=== PATIENT | male | born 1965 | race American Indian/Alaskan Native ===

== ENCOUNTER 2019-07-01 01:59 | Inpatient (IN) | payer OTHER ==
[2019-07-01 03:02] LABS: Basophils % (Auto) 0.2 % (0.0-1.8); Eosinophils # (Auto) 0.2 K/mm3 (0.0-0.4); Hemoglobin 14.3 gm/dl (11.8-15.2); Lymphocytes # (Auto) 3.3 K/mm3 (1.2-5.4); Lymphocytes % (Auto) 37.1 % (13.4-35.0); Mean Corpuscular HGB Conc 35 % (32-34); Mean Corpuscular Volume 92 fl (84-94); Monocytes # (Auto) 0.9 K/mm3 (0.0-0.8); Monocytes % (Auto) 9.5 % (0.0-7.3); Platelet Count 221 K/mm3 (140-440); Red Blood Count 4.44 M/mm3 (3.65-5.03); Red Cell Distribution Width 13.8 % (13.2-15.2)
--- NOTE | 2019-07-01 03:10 | Cat Scan Report ---
CT head without contrast INDICATION : AMS. TECHNIQUE: Axial imaging performed from the skull apex through the skull base without the use of con trast. All CT scans at this location are performed using CT dose reduction for ALARA by means of aut omated exposure control. COMPARISON: None FINDINGS: Parenchyma: No acute intracranial hemorrhage or parenchymal abnormality. Ventricles: Ventricles are normal in size and appear symmetric. Soft tissues: Soft tissues including the orbits appear normal. Bones: No acute osseous abnormality. Sinuses: Small mucous retention cyst in the right frontal sinus. Remaining sinuses and mastoid air c ells are clear. IMPRESSION: No acute abnormality. Signer Name: Hollis Finnegan MD Signed: 07/01/2019 3:06 AM Workstation Name: [id number]
[2019-07-01 03:13] LABS: INR 0.88 (0.87-1.13)
[2019-07-01 03:14] LABS: Partial Thromboplastin Time 26.9 Sec. (24.2-36.6)
--- NOTE | 2019-07-01 03:34 | Emergency Department Report ---
ED Altered Mental Status HPI - General Chief Complaint: Altered Mental Status Stated Complaint: ALTERED MENTAL STATUS Time Seen by Provider: 07/01/19 03:05 Source: EMS Mode of arrival: Stretcher Limitations: Altered Mental Status - History of Present Illness Initial Comments: 55-year-old male with a past medical history diabetes, hypertension, and TIA p resents to the hospital with alteration in mental status. Patient states he last remembers sitting on a couch drinking of beer and does not recall how he got to the hospital. called EMS because patient was not acting like himself. RN informs me that upon arrival patient was altered, had episodes of staring, and he could mot have a conversation. At time of my evaluation he is alert and oriented 3 with complaints of headache. Patient also complains of ongoing left lower leg pain 3 weeks since discharge from [facility] after admission for cardiac workup due to chest pain. Patient reports that he recently returned from [place] and had a syncopal episode while there. Patient states he has had several syncopal episodes recently. He denies chest pain, shortness of breath, abdominal pain, nausea, vomiting, or diarrhea. He denies having any residual deficit secondary to previous CVA. 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 - Related Data Allergies Allergy/AdvReac Type Severity Reaction Status Date / Time No Known Allergies Allergy Unverified 07/01/19 02:16 ED Review of Systems ROS: Stated complaint: ALTERED MENTAL STATUS Other details as noted in HPI Comment: All other systems reviewed and negative ED Past Medical Hx - Past Medical History Previous Medical History?: Yes Hx Hypertension: Yes Hx Diabetes: Yes (NIDDM) Additional medical history: TIA /unable to assess - Surgical History Past Surgical History?: Yes Additional Surgical History: unable to assess - Social History Smoking Status: Light Tobacco Smoker Substance Use Type: Alcohol ED Physical Exam - General Limitations: Altered Mental Status - Other Other exam information: General: no acute distress Head: Atraumatic, normocephalic Eyes: Normal appearance, pupils equal and reactive to light, extraocular movements intact ENT: normal oropharynx Neck: Normal appearance, no stridor, no meningismus, left-sided muscular neck tenderness without midline tenderness Cardiovascular: Regular rate and rhythm Chest: Clear to auscultation, no wheezes, rales, or crackles Abdomen: nondistended, soft, nontender, no rebound or guarding Extremity: Normal appearance, no deformity, full range of motion Neuro: Alert and oriented 3, clear speech, no gross motor or sensory deficit, [id number] function intact Skin: No warmth, erythema ED Course Vital Signs 07/01/19 07/01/19 07/01/19 02:07 02:13 02:15 Temperature 98.3 F Pulse Rate 81 79 78 Respiratory 29 H 22 21 Rate Blood Pressure 160/82 150/80 O2 Sat by Pulse 99 99 97 Oximetry 07/01/19 07/01/19 02:30 03:48 Temperature Pulse Rate 76 Respiratory 23 18 Rate Blood Pressure 137/69 O2 Sat by Pulse 95 Oximetry - Lab Data Result diagrams: 07/01/19 02:36 07/01/19 02:36 Lab Results 07/01/19 07/01/19 07/01/19 Range/Units 02:36 02:36 02:36 WBC 9.0 (4.5-11.0) K/mm3 RBC 4.44 (3.65-5.03) M/mm3 Hgb 14.3 (11.8-15.2) gm/dl Hct 41.0 (35.5-45.6) % MCV 92 (84-94) fl MCH 32 (28-32) pg MCHC 35 H (32-34) % RDW 13.8 (13.2-15.2) % Plt Count 221 (140-440) K/mm3 Lymph % (Auto) 37.1 H (13.4-35.0) % Barnes % (Auto) 9.5 H (0.0-7.3) % Eos % (Auto) 2.0 (0.0-4.3) % Baso % (Auto) 0.2 (0.0-1.8) % Lymph # 3.3 (1.2-5.4) K/mm3 Barnes # 0.9 H (0.0-0.8) K/mm3 Eos # 0.2 (0.0-0.4) K/mm3 Baso # 0.0 (0.0-0.1) K/mm3 Seg Neutrophils % 51.2 (40.0-70.0) % Seg Neutrophils # 4.6 (1.8-7.7) K/mm3 PT 11.7 L (12.2-14.9) Sec. INR 0.88 (0.87-1.13) APTT 26.9 (24.2-36.6) Sec. Sodium 134 L (137-145) mmol/L Potassium 3.2 L (3.6-5.0) mmol/L Chloride 93.4 L (98-107) mmol/L Carbon Dioxide 23 (22-30) mmol/L Anion Gap 21 mmol/L BUN 8 L (9-20) mg/dL Creatinine 0.8 (0.8-1.5) mg/dL Estimated GFR > 60 ml/min BUN/Creatinine Ratio 10 % Glucose 285 H (75-100) mg/dL Lactic Acid (0.7-2.0) mmol/L Calcium 9.5 (8.4-10.2) mg/dL Magnesium (1.7-2.3) mg/dL Total Bilirubin 0.20 (0.1-1.2) mg/dL AST 15 (5-40) units/L ALT 18 (7-56) units/L Alkaline Phosphatase 64 (35-129) units/L Troponin T < 0.010 (0.00-0.029) ng/mL Total Protein 7.8 (6.3-8.2) g/dL Albumin 4.1 (3.9-5) g/dL Albumin/Globulin Ratio 1.1 % Urine Color (Yellow) Urine Turbidity (Clear) Urine pH (5.0-7.0) Ur Specific [place] (1.003-1.030) Urine Protein (Negative) mg/dL Urine Glucose (UA) (Negative) mg/dL Urine Ketones (Negative) mg/dL Urine Blood (Negative) Urine Nitrite (Negative) Urine Bilirubin (Negative) Urine Urobilinogen (<2.0) mg/dL Ur Leukocyte Esterase (Negative) Urine WBC (Auto) (0.0-6.0) /HPF Urine RBC (Auto) (0.0-6.0) /HPF Urine Mucus /HPF Salicylates (2.8-20.0) mg/dL Urine Opiates Screen Urine Methadone Screen Acetaminophen (10.0-30.0) ug/mL Ur Barbiturates Screen Ur Phencyclidine Scrn Ur Amphetamines Screen U Benzodiazepines Scrn Urine Cocaine Screen U Marijuana (THC) Screen Drugs of Abuse Note Plasma/Serum Alcohol (0-0.07) % 07/01/19 07/01/19 07/01/19 Range/Units 02:36 02:36 02:36 WBC (4.5-11.0) K/mm3 RBC (3.65-5.03) M/mm3 Hgb (11.8-15.2) gm/dl Hct (35.5-45.6) % MCV (84-94) fl MCH (28-32) pg MCHC (32-34) % RDW (13.2-15.2) % Plt Count (140-440) K/mm3 Lymph % (Auto) (13.4-35.0) % Barnes % (Auto) (0.0-7.3) % Eos % (Auto) (0.0-4.3) % Baso % (Auto) (0.0-1.8) % Lymph # (1.2-5.4) K/mm3 Barnes # (0.0-0.8) K/mm3 Eos # (0.0-0.4) K/mm3 Baso # (0.0-0.1) K/mm3 Seg Neutrophils % (40.0-70.0) % Seg Neutrophils # (1.8-7.7) K/mm3 PT (12.2-14.9) Sec. INR (0.87-1.13) APTT (24.2-36.6) Sec. Sodium (137-145) mmol/L Potassium (3.6-5.0) mmol/L Chloride (98-107) mmol/L Carbon Dioxide (22-30) mmol/L Anion Gap mmol/L BUN (9-20) mg/dL Creatinine (0.8-1.5) mg/dL Estimated GFR ml/min BUN/Creatinine Ratio % Glucose (75-100) mg/dL Lactic Acid 4.40 H* (0.7-2.0) mmol/L Calcium (8.4-10.2) mg/dL Magnesium (1.7-2.3) mg/dL Total Bilirubin (0.1-1.2) mg/dL AST (5-40) units/L ALT (7-56) units/L Alkaline Phosphatase (35-129) units/L Troponin T (0.00-0.029) ng/mL Total Protein (6.3-8.2) g/dL Albumin (3.9-5) g/dL Albumin/Globulin Ratio % Urine Color (Yellow) Urine Turbidity (Clear) Urine pH (5.0-7.0) Ur Specific [place] (1.003-1.030) Urine Protein (Negative) mg/dL Urine Glucose (UA) (Negative) mg/dL Urine Ketones (Negative) mg/dL Urine Blood (Negative) Urine Nitrite (Negative) Urine Bilirubin (Negative) Urine Urobilinogen (<2.0) mg/dL Ur Leukocyte Esterase (Negative) Urine WBC (Auto) (0.0-6.0) /HPF Urine RBC (Auto) (0.0-6.0) /HPF Urine Mucus /HPF Salicylates < 0.3 L (2.8-20.0) mg/dL Urine Opiates Screen Urine Methadone Screen Acetaminophen < 5.0 L (10.0-30.0) ug/mL Ur Barbiturates Screen Ur Phencyclidine Scrn Ur Amphetamines Screen U Benzodiazepines Scrn Urine Cocaine Screen U Marijuana (THC) Screen Drugs of Abuse Note Plasma/Serum Alcohol (0-0.07) % 07/01/19 07/01/19 07/01/19 Range/Units 02:36 03:40 03:40 WBC (4.5-11.0) K/mm3 RBC (3.65-5.03) M/mm3 Hgb (11.8-15.2) gm/dl Hct (35.5-45.6) % MCV (84-94) fl MCH (28-32) pg MCHC (32-34) % RDW (13.2-15.2) % Plt Count (140-440) K/mm3 Lymph % (Auto) (13.4-35.0) % Barnes % (Auto) (0.0-7.3) % Eos % (Auto) (0.0-4.3) % Baso % (Auto) (0.0-1.8) % Lymph # (1.2-5.4) K/mm3 Barnes # (0.0-0.8) K/mm3 Eos # (0.0-0.4) K/mm3 Baso # (0.0-0.1) K/mm3 Seg Neutrophils % (40.0-70.0) % Seg Neutrophils # (1.8-7.7) K/mm3 PT (12.2-14.9) Sec. INR (0.87-1.13) APTT (24.2-36.6) Sec. Sodium (137-145) mmol/L Potassium (3.6-5.0) mmol/L Chloride (98-107) mmol/L Carbon Dioxide (22-30) mmol/L Anion Gap mmol/L BUN (9-20) mg/dL Creatinine (0.8-1.5) mg/dL Estimated GFR ml/min BUN/Creatinine Ratio % Glucose (75-100) mg/dL Lactic Acid (0.7-2.0) mmol/L Calcium (8.4-10.2) mg/dL Magnesium (1.7-2.3) mg/dL Total Bilirubin (0.1-1.2) mg/dL AST (5-40) units/L ALT (7-56) units/L Alkaline Phosphatase (35-129) units/L Troponin T (0.00-0.029) ng/mL Total Protein (6.3-8.2) g/dL Albumin (3.9-5) g/dL Albumin/Globulin Ratio % Urine Color Straw (Yellow) Urine Turbidity Clear (Clear) Urine pH 5.0 (5.0-7.0) Ur Specific [place] 1.008 (1.003-1.030) Urine Protein <15 mg/dl (Negative) mg/dL Urine Glucose (UA) >=500 (Negative) mg/dL Urine Ketones Tr (Negative) mg/dL Urine Blood Neg (Negative) Urine Nitrite Neg (Negative) Urine Bilirubin Neg (Negative) Urine Urobilinogen < 2.0 (<2.0) mg/dL Ur Leukocyte Esterase Neg (Negative) Urine WBC (Auto) < 1.0 (0.0-6.0) /HPF Urine RBC (Auto) < 1.0 (0.0-6.0) /HPF Urine Mucus Few /HPF Salicylates (2.8-20.0) mg/dL Urine Opiates Screen Presumptive negative Urine Methadone Screen Presumptive negative Acetaminophen (10.0-30.0) ug/mL Ur Barbiturates Screen Presumptive negative Ur Phencyclidine Scrn Presumptive negative Ur Amphetamines Screen Presumptive negative U Benzodiazepines Scrn Presumptive negative Urine Cocaine Screen Presumptive negative U Marijuana (THC) Screen Presumptive positive Drugs of Abuse Note Disclamer Plasma/Serum Alcohol < 0.01 (0-0.07) % 07/01/19 07/01/19 07/01/19 Range/Units 03:59 03:59 Unknown WBC (4.5-11.0) K/mm3 RBC (3.65-5.03) M/mm3 Hgb (11.8-15.2) gm/dl Hct (35.5-45.6) % MCV (84-94) fl MCH (28-32) pg MCHC (32-34) % RDW (13.2-15.2) % Plt Count (140-440) K/mm3 Lymph % (Auto) (13.4-35.0) % Barnes % (Auto) (0.0-7.3) % Eos % (Auto) (0.0-4.3) % Baso % (Auto) (0.0-1.8) % Lymph # (1.2-5.4) K/mm3 Barnes # (0.0-0.8) K/mm3 Eos # (0.0-0.4) K/mm3 Baso # (0.0-0.1) K/mm3 Seg Neutrophils % (40.0-70.0) % Seg Neutrophils # (1.8-7.7) K/mm3 PT (12.2-14.9) Sec. INR (0.87-1.13) APTT (24.2-36.6) Sec. Sodium (137-145) mmol/L Potassium (3.6-5.0) mmol/L Chloride (98-107) mmol/L Carbon Dioxide (22-30) mmol/L Anion Gap mmol/L BUN (9-20) mg/dL Creatinine (0.8-1.5) mg/dL Estimated GFR ml/min BUN/Creatinine Ratio % Glucose (75-100) mg/dL Lactic Acid 2.20 H* (0.7-2.0) mmol/L Calcium (8.4-10.2) mg/dL Magnesium 1.90 (1.7-2.3) mg/dL Total Bilirubin (0.1-1.2) mg/dL AST (5-40) units/L ALT (7-56) units/L Alkaline Phosphatase (35-129) units/L Troponin T < 0.010 (0.00-0.029) ng/mL Total Protein (6.3-8.2) g/dL Albumin (3.9-5) g/dL Albumin/Globulin Ratio % Urine Color (Yellow) Urine Turbidity (Clear) Urine pH (5.0-7.0) Ur Specific [place] (1.003-1.030) Urine Protein (Negative) mg/dL Urine Glucose (UA) (Negative) mg/dL Urine Ketones (Negative) mg/dL Urine Blood (Negative) Urine Nitrite (Negative) Urine Bilirubin (Negative) Urine Urobilinogen (<2.0) mg/dL Ur Leukocyte Esterase (Negative) Urine WBC (Auto) (0.0-6.0) /HPF Urine RBC (Auto) (0.0-6.0) /HPF Urine Mucus /HPF Salicylates (2.8-20.0) mg/dL Urine Opiates Screen Urine Methadone Screen Acetaminophen (10.0-30.0) ug/mL Ur Barbiturates Screen Ur Phencyclidine Scrn Ur Amphetamines Screen U Benzodiazepines Scrn Urine Cocaine Screen U Marijuana (THC) Screen Drugs of Abuse Note Plasma/Serum Alcohol (0-0.07) % - EKG Data -: EKG Interpreted by Ar EKG shows normal: sinus rhythm - Radiology Data Radiology results: report reviewed CT head without contrast INDICATION : AMS. TECHNIQUE: Axial imaging performed from the skull apex through the skull base without the use of contrast. All CT scans at this location are performed using CT dose reduction for ALARA by means of automated exposure control. COMPARISON: None FINDINGS: Parenchyma: No acute intracranial hemorrhage or parenchymal abnormality. Ventricles: Ventricles are normal in size and appear symmetric. Soft tissues: Soft tissues including the orbits appear normal. Bones: No acute osseous abnormality. Sinuses: Small mucous retention cyst in the right frontal sinus. Remaining sinuses and mastoid air cells are clear. IMPRESSION: No acute abnormality. . CHEST 1 VIEW INDICATION: ams. COMPARISON: None FINDINGS: Support devices: None. Heart: Within normal limits. Lungs/Pleura: No acute air space or interstitial disease. Additional findings: None. IMPRESSION: 1. No acute findings. - Medical Decision Making Plan to admit patient for further workup for transient alteration in mental status. - Differential Diagnosis cva, tia, epilepsy, alcohol use, encephalopathy Critical Care Time: No Critical care attestation.: If time is entered above; I have spent that time in minutes in the direct care of this critically ill patient, excluding procedure time. ED Disposition Clinical Impression: Transient alteration of awareness Disposition: DC-09 OP ADMIT IP TO THIS HOSP Is pt being admited?: Yes Condition: Stable Time of Disposition: 04:22 (DR Rendon/hosp)
[2019-07-01 03:40] LABS: Alanine Aminotransferase 18 units/L (7-56); Albumin 4.1 g/dL (3.9-5); BUN/Creatinine Ratio 10; Blood Urea Nitrogen 8 mg/dL (9-20); Calcium 9.5 mg/dL (8.4-10.2); Hemolysis Index 15
[2019-07-01 04:00] LABS: Bilirubin,Urine NEG (Negative); Blood,Urine NEG (Negative); Color,Urine Straw (Yellow); Mucus,Urine FEW /HPF; Protein,Urine <15 mg/dL mg/dL (Negative); RBC,Urine < 1.0 /HPF (0.0-6.0); Urobilinogen,Urine < 2.0 mg/dL (<2.0); WBC,Urine < 1.0 /HPF (0.0-6.0)
--- NOTE | 2019-07-01 04:08 | XRay Report ---
. CHEST 1 VIEW INDICATION: ams. COMPARISON: None FINDINGS: Support devices: None. Heart: Within normal limits. Lungs/Pleura: No acute air space or interstitial disease. Additional findings: None. IMPRESSION: 1. No acute findings. Signer Name: Hollis Finnegan MD Signed: 07/01/2019 4:03 AM Workstation Name: [id number]
[2019-07-01 04:12] LABS: Amphetamine Screen,Urine PRESUMPTIVE NEGATIVE; Benzodiazepines Screen,Urine PRESUMPTIVE NEGATIVE; Cocaine Screen,Urine PRESUMPTIVE NEGATIVE; Methadone Screen,Urine PRESUMPTIVE NEGATIVE; Opiate Screen,Urine PRESUMPTIVE NEGATIVE
[2019-07-01 04:23] LABS: Cannabinoid Screen,Urine PRESUMPTIVE POSITIVE
[2019-07-01] MEDS ORDERED: ZOFRAN IV PRN (05:36)
[2019-07-01] MEDS ORDERED: D50W (25GM) Syringe IV PRN (05:36)
[2019-07-01] MEDS ORDERED: SODIUM CHLORIDE FLUSH SYRINGE 10 ML IV PRN (05:36)
[2019-07-01] MEDS ORDERED: K-DUR PO ONE (05:39)
[2019-07-01] MEDS ORDERED: NACL 0.9% 1000 ML 1,000 ML IV SCH (06:00)
--- NOTE | 2019-07-01 06:11 | Event Note ---
54-year-old man with history of hypertension diabetes and previous TIA who was at home drinking beer with his brother in law, and doesn't remember how he got here, He remembers having a MONTESINOS before he "blacked out". Patient had a recent similar episode last week in [place], and he also states that he had similar presentation when he had his stroke years ago.. His brought him into the hospital because he was altered and not himself, no focal deficits on exam. UDS is positive for marijuana. Patient now oriented with no recollection of what happened during the interim period Acute metobolic encephalopathy, CT head negative, Stroke w/o, echo, DDX include non convulsive seizure given LA, stroke MONTESINOS- received tylenol, MR brain pending Hypokalemia; repleted Diabetes with hyperglycemia; SSI, A1c 8 LE neuropathy; patient states its getting worse, continue neurontin, will con nursery nurse increasing dose tomorrow after stroke w/o Labs significant for LA, but no evidence of infection
[2019-07-01] MEDS: TYLENOL PO PRN ×2 (06:25→18:06)
[2019-07-01] MEDS ORDERED: SODIUM CHLORIDE FLUSH SYRINGE 10 ML INJ PRN (06:36)
--- NOTE | 2019-07-01 06:47 | History and Physical Report ---
History of Present Illness Date of examination: 07/01/19 Date of admission: 07/01/2019 Chief complaint: AMS, History of present illness: 54-year-old man with history of hypertension, diabetes and previous TIA who presents to [facility] ED with AMS. Pt's is present at bedside and has assisted with history. Pt states that he was at home sitting on the couch, drinking beer with his brother in law, and doesn't remember how he got here. However, he does recalls having a headache before blacking out". Patient states that he had a recent similar episode last week, while vacationing in [place]. Also he states that he had similar presentation when he had his stroke years ago. Denies: history of seizure, recent falls, visual disturbances fever, or recent sick contact Past History Past Medical History: diabetes, hypertension, stroke (TIA) Past Surgical History: No surgical history Social history: , lives with family, other (marijuana use) Family history: no significant family history Medications and Allergies Allergies Allergy/AdvReac Type Severity Reaction Status Date / Time No Known Allergies Allergy Unverified 07/01/19 02:16 Home Medications Medication Instructions Recorded Confirmed Last Taken Type Carvedilol [Coreg] 12.5 mg PO BID 07/01/19 07/01/19 Unknown History Gabapentin [Neurontin] 300 mg PO BID 07/01/19 07/01/19 Unknown History amLODIPine [Norvasc] 10 mg PO DAILY 07/01/19 07/01/19 Unknown History hydroCHLOROthiazide [HCTZ] 25 mg PO QDAY 07/01/19 07/01/19 Unknown History metFORMIN [Glucophage] 500 mg PO BID 07/01/19 07/01/19 Unknown History Active Meds: Active Medications Acetaminophen (Tylenol) 650 mg PO Q4H PRN PRN Reason: Pain MILD(1-3)/Fever >100.5/MONTESINOS Last Admin: 07/01/19 06:25 Dose: 650 mg Documented by: Atorvastatin Calcium (Lipitor) 40 mg PO QHS MAREK Dextrose (D50w (25gm) Syringe) 50 ml IV PRN PRN PRN Reason: Hypoglycemia Docusate Sodium (Colace) 100 mg PO BID MAREK Enoxaparin Sodium (Lovenox) 40 mg SUB-Q QDAY MAREK Gabapentin (Neurontin) 300 mg PO BID MAREK Sodium Chloride (Nacl 0.9% 1000 Ml) 1,000 mls @ 100 mls/hr IV DIRECT MAREK Insulin Human Lispro (Humalog) 0 unit SUB-Q ACHS AMREK; Protocol Metformin HCl (Glucophage) 500 mg PO BIDDIAB MAREK Ondansetron HCl (Zofran) 4 mg IV Q8H PRN PRN Reason: Nausea And Vomiting Sodium Chloride (Sodium Chloride Flush Syringe 10 Ml) 10 ml IV BID MAREK Sodium Chloride (Sodium Chloride Flush Syringe 10 Ml) 10 ml IV PRN PRN PRN Reason: LINE FLUSH Sodium Chloride (Sodium Chloride Flush Syringe 10 Ml) 10 ml INJ PRN PRN PRN Reason: LINE FLUSH Review of Systems All systems: negative (reviewed and no additional remarkable complaints except as noted below) Neurological: confusion (confused about events during the time in question), other (pt lost consciousness) Exam - Physical Exam Narrative exam: Physical exam General appearance: Present: No acute distress, awake and oriented 3, well- developed, well-nourished, -[place] male, - EENT Eyes: Present: PERRL, EOM intact ENT: hearing intact, normal dentition - Neck Neck: Present: supple, normal ROM - Respiratory Respiratory effort: Non-labored Respiratory: CTA bilaterally - Cardiovascular Heart rate:72 (bpm) Rhythm: ST Heart Sounds: Present: S1 & S2. Absent: rub, click - Extremities Extremities: no ischemia, pulses intact, - Peripheral Assessment Peripheral Pulses: within normal limits - Abdominal General gastrointestinal: soft, non-tender, normal bowel sounds - Integumentary Integumentary: Present: warm, dry - Musculoskeletal Musculoskeletal: able to move all extremities -Neurological Neurological: CN II-XII [place] intact - Psychiatric Psychiatric: Pleasant, cooperative - Constitutional Vitals: Temp Pulse Resp BP Pulse Ox 98.3 F 74 17 131/69 97 07/01/19 02:07 07/01/19 04:01 07/01/19 05:01 07/01/19 05:01 07/01/19 05:01 Results - Labs CBC & Chem 7: 07/01/19 02:36 07/01/19 02:36 Labs: Laboratory Last Values WBC 9.0 K/mm3 (4.5-11.0) 07/01/19 02:36 RBC 4.44 M/mm3 (3.65-5.03) 07/01/19 02:36 Hgb 14.3 gm/dl (11.8-15.2) 07/01/19 02:36 Hct 41.0 % (35.5-45.6) 07/01/19 02:36 MCV 92 fl (84-94) 07/01/19 02:36 MCH 32 pg (28-32) 07/01/19 02:36 MCHC 35 % (32-34) H 07/01/19 02:36 RDW 13.8 % (13.2-15.2) 07/01/19 02:36 Plt Count 221 K/mm3 (140-440) 07/01/19 02:36 Lymph % (Auto) 37.1 % (13.4-35.0) H 07/01/19 02:36 [place] % (Auto) 9.5 % (0.0-7.3) H 07/01/19 02:36 Eos % (Auto) 2.0 % (0.0-4.3) 07/01/19 02:36 Baso % (Auto) 0.2 % (0.0-1.8) 07/01/19 02:36 Lymph # 3.3 K/mm3 (1.2-5.4) 07/01/19 02:36 [place] # 0.9 K/mm3 (0.0-0.8) H 07/01/19 02:36 Eos # 0.2 K/mm3 (0.0-0.4) 07/01/19 02:36 Baso # 0.0 K/mm3 (0.0-0.1) 07/01/19 02:36 Seg Neutrophils % 51.2 % (40.0-70.0) 07/01/19 02:36 Seg Neutrophils # 4.6 K/mm3 (1.8-7.7) 07/01/19 02:36 PT 11.7 Sec. (12.2-14.9) L 07/01/19 02:36 INR 0.88 (0.87-1.13) 07/01/19 02:36 APTT 26.9 Sec. (24.2-36.6) 07/01/19 02:36 Sodium 134 mmol/L (137-145) L 07/01/19 02:36 Potassium 3.2 mmol/L (3.6-5.0) L 07/01/19 02:36 Chloride 93.4 mmol/L (98-107) L 07/01/19 02:36 Carbon Dioxide 23 mmol/L (22-30) 07/01/19 02:36 21 mmol/L 07/01/19 02:36 BUN 8 mg/dL (9-20) L 07/01/19 02:36 0.8 mg/dL (0.8-1.5) 07/01/19 02:36 Estimated GFR > 60 ml/min 07/01/19 02:36 10 % 07/01/19 02:36 Glucose 285 mg/dL (75-100) H 07/01/19 02:36 8.6 % (4-6) H 07/01/19 02:38 Lactic Acid 1.50 mmol/L (0.7-2.0) 07/01/19 05:34 Calcium 9.5 mg/dL (8.4-10.2) 07/01/19 02:36 Magnesium 1.90 mg/dL (1.7-2.3) 07/01/19 Unknown 0.20 mg/dL (0.1-1.2) 07/01/19 02:36 AST 15 units/L (5-40) 07/01/19 02:36 ALT 18 units/L (7-56) 07/01/19 02:36 64 units/L (35-129) 07/01/19 02:36 < 0.010 ng/mL (0.00-0.029) 07/01/19 03:59 7.8 g/dL (6.3-8.2) 07/01/19 02:36 4.1 g/dL (3.9-5) 07/01/19 02:36 1.1 % 07/01/19 02:36 Straw (Yellow) 07/01/19 03:40 Clear (Clear) 07/01/19 03:40 5.0 (5.0-7.0) 07/01/19 03:40 Ur Specific [place] 1.008 (1.003-1.030) 07/01/19 03:40 <15 mg/dl mg/dL (Negative) 07/01/19 03:40 >=500 mg/dL (Negative) 07/01/19 03:40 Tr mg/dL (Negative) 07/01/19 03:40 Neg (Negative) 07/01/19 03:40 Neg (Negative) 07/01/19 03:40 Neg (Negative) 07/01/19 03:40 < 2.0 mg/dL (<2.0) 07/01/19 03:40 Ur Leukocyte Esterase Neg (Negative) 07/01/19 03:40 < 1.0 /HPF (0.0-6.0) 07/01/19 03:40 < 1.0 /HPF (0.0-6.0) 07/01/19 03:40 Few /HPF 07/01/19 03:40 Salicylates < 0.3 mg/dL (2.8-20.0) L 07/01/19 02:36 Presumptive negative 07/01/19 03:40 Presumptive negative 07/01/19 03:40 Acetaminophen < 5.0 ug/mL (10.0-30.0) L 07/01/19 02:36 Ur Barbiturates Screen Presumptive negative 07/01/19 03:40 Ur Phencyclidine Scrn Presumptive negative 07/01/19 03:40 Ur Amphetamines Screen Presumptive negative 07/01/19 03:40 U Benzodiazepines Scrn Presumptive negative 07/01/19 03:40 Presumptive negative 07/01/19 03:40 U Marijuana (THC) Screen Presumptive positive 07/01/19 03:40 Disclamer 07/01/19 03:40 Plasma/Serum Alcohol < 0.01 % (0-0.07) 07/01/19 02:36 - Imaging and Cardiology Chest x-ray: report reviewed (Lungs/Pleura: No acute air space or interstitial disease. ), image reviewed Imaging and Cardiology: CT Head: Findings: Parenchyma: No acute intracranial hemorrhage or parenchymal abnormality. Ventricles: Ventricles are normal in size and appear symmetric. Soft tissues: Soft tissues including the orbits appear normal. Bones: No acute osseous abnormality. Sinuses: Small mucous retention cyst in the right frontal sinus. Remaining sinuses and mastoid air cells are clear. Impressions: No acute abnormality. Assessment and Plan Assessment and plan: 54-year-old man with history of hypertension, diabetes and previous TIA who presents to [facility] ED with complaints of AMS (blacking out and not recalling the event). At the time of my examination pt is awake, alert and oriented x3. He states that he does "feel like his normal self, and feels off". Acute metobolic encephalopathy -?? Non convulsive seizure -CT head negative -Initiate Stroke protocol -Echo, MRI/MRA Brain, and Carotid Duplex pending Headache -Continue Supportive care -Pain Mgmt Hypokalemia -Potassium on admssion 3.2 -Repleted -Continue to monitor and replete prn Diabetes with hyperglycemia and neuropathy -HgbA1c 8 -SSI coverage -Patient states its getting worse -Continue neurontin, may consider increasing dose if no improvement after stroke work up Lactic Acidosis -Lactic Acid on admission 2.20 -No leukocytosis, afebrile -IV hydration will monitor for improvement Marijuana abuse -UDS positive for marijuana DVT PPX -On Lovenox Advance Directives: No VTE prophylaxis?: Chemical Plan of care discussed with patient/family: Yes
[2019-07-01] MEDS ORDERED: HumaLOG SUB-Q ONE (07:43)
[2019-07-01] MEDS ORDERED: GLUCOPHAGE ONE (07:44)
[2019-07-01] MEDS: HumaLOG SUB-Q SCH ×4 (07:49→22:12)
[2019-07-01] MEDS: GLUCOPHAGE PO SCH ×2 (07:49→18:02)
--- NOTE | 2019-07-01 10:19 | Vascular Lab Report ---
BILATERAL CAROTID DOPPLER ULTRASOUND INDICATION : stroke TECHNIQUE: Grayscale and color Doppler imaging performed through the neck. COMPARISON: None FINDINGS: Right: There is minimal partially calcified plaque in the carotid bulb. Peak systolic velocity in t he CCA is 90 cm/s with end-diastolic velocity of 31 cm/s. Peak systolic velocity in the proximal ICA is 111 cm/s with end-diastolic velocity of 44 cm/s. ICA to CCA ratio is less than 2. There is antegra de flow in the ECA and the vertebral artery. Left: There is no significant atherosclerotic disease. Peak systolic velocity in the CCA is 99 cm/s w ith end-diastolic velocity of 28 cm/s. Peak systolic velocity in the proximal ICA is 100 cm/s with en d-diastolic velocity of 54 cm/s. ICA to CCA ratio is less than 2. There is antegrade flow in the ECA and the vertebral artery. IMPRESSION: No hemodynamically significant stenosis by NASCET criteria. There is less than 50% lumina l narrowing in both carotid systems. Signer Name: Jim Vang Jr, MD Signed: 07/01/2019 10:15 AM Workstation Name: [id number]
[2019-07-01] MEDS ORDERED: LIBRIUM PO PRN ×2 (12:10)
[2019-07-01] MEDS ORDERED: ATIVAN IV PRN ×3 (12:10)
[2019-07-01] MEDS: LOVENOX SUB-Q SCH (13:07)
[2019-07-01] MEDS: COLACE PO SCH ×2 (13:07→22:12)
[2019-07-01] MEDS: NEURONTIN PO SCH ×2 (13:07→22:12)
[2019-07-01] MEDS: VITAMIN B-1 PO SCH (13:08)
[2019-07-01] MEDS: FOLVITE PO SCH (13:08)
[2019-07-01] MEDS: THERAGRAN Tab PO SCH (13:08)
[2019-07-01] MEDS: SODIUM CHLORIDE FLUSH SYRINGE 10 ML IV SCH ×2 (13:09→22:12)
--- NOTE | 2019-07-01 13:36 | Magnetic Resonance Report ---
MRI BRAIN 07/01/2019 INDICATION / CLINICAL INFORMATION: stroke. Right-sided weakness. Headaches. TECHNIQUE: Multiplanar, multisequence MR images of the brain were obtained. COMPARISON: None available. FINDINGS: BRAIN / INTRACRANIAL CONTENTS: Unenhanced MR images of the brain demonstrate no evidence of acute int racranial abnormality. Ventricles and sulci are normal in size and shape. There is no evidence of acute ischemic injury, hemorrhage, or mass. There are no abnormal extra-axial fluid collections. A few scattered nonspecific white matter T2 weighted hyperintensities are noted incidentally. EXTRACRANIAL: Unremarkable CRANIOCERVICAL JUNCTION: No significant abnormality. VASCULAR FLOW-VOIDS: No significant abnormality. IMPRESSION: No significant abnormality. Signer Name: Dash Spangler MD Signed: 07/01/2019 1:32 PM Workstation Name: [id number]
--- NOTE | 2019-07-01 13:37 | Magnetic Resonance Report ---
MRA HEAD 07/01/2019 INDICATION / CLINICAL INFORMATION: stroke. Right-sided weakness and headaches TECHNIQUE: Routine MRA of the head is performed. 3-D/MIP reformats postprocessed. COMPARISON: None available. FINDINGS: MRA HEAD: Intracranial internal carotid arteries: No significant abnormality. Anterior cerebral arteries: No significant abnormality. Middle cerebral arteries: No significant abnormality. Intracranial vertebral arteries: No significant abnormality. Basilar artery: No significant abnormality. Posterior cerebral arteries: No significant abnormality. IMPRESSION: No significant abnormality. Signer Name: Dash Spangler MD Signed: 07/01/2019 1:33 PM Workstation Name: [email or web address]
--- NOTE | 2019-07-01 15:12 | Consultation ---
Past History Past Medical History: diabetes, hypertension, stroke (TIA) Past Surgical History: No surgical history Social history: , lives with family, other (marijuana use) Family history: no significant family history Medications and Allergies Allergies Allergy/AdvReac Type Severity Reaction Status Date / Time No Known Allergies Allergy Unverified 07/01/19 02:16 Home Medications Medication Instructions Recorded Confirmed Last Taken Type Carvedilol [Coreg] 12.5 mg PO BID 07/01/19 07/01/19 Unknown History Gabapentin [Neurontin] 300 mg PO BID 07/01/19 07/01/19 Unknown History amLODIPine [Norvasc] 10 mg PO DAILY 07/01/19 07/01/19 Unknown History hydroCHLOROthiazide [HCTZ] 25 mg PO QDAY 07/01/19 07/01/19 Unknown History metFORMIN [Glucophage] 500 mg PO BID 07/01/19 07/01/19 Unknown History Active Meds: Active Medications Acetaminophen (Tylenol) 650 mg PO Q4H PRN PRN Reason: Pain MILD(1-3)/Fever >100.5/MONTESINOS Last Admin: 07/01/19 06:25 Dose: 650 mg Documented by: Atorvastatin Calcium (Lipitor) 40 mg PO QHS [facility] Chlordiazepoxide HCl (Librium) 50 mg PO Q1HR PRN PRN Reason: CIWA-Ar 8-15 Chlordiazepoxide HCl (Librium) 100 mg PO Q1HR PRN PRN Reason: CIWA-Ar 16-25 Dextrose (D50w (25gm) Syringe) 50 ml IV PRN PRN PRN Reason: Hypoglycemia Docusate Sodium (Colace) 100 mg PO BID [facility] Last Admin: 07/01/19 13:07 Dose: 100 mg Documented by: Enoxaparin Sodium (Lovenox) 40 mg SUB-Q QDAY [facility] Last Admin: 07/01/19 13:07 Dose: 40 mg Documented by: Folic Acid (Folvite) 1 mg PO QDAY [facility] Last Admin: 07/01/19 13:08 Dose: 1 mg Documented by: Gabapentin (Neurontin) 300 mg PO BID [facility] Last Admin: 07/01/19 13:07 Dose: 300 mg Documented by: Sodium Chloride (Nacl 0.9% 1000 Ml) 1,000 mls @ 100 mls/hr IV DIRECT [facility] Insulin Human Lispro (Humalog) 0 unit SUB-Q [facility]; Protocol Last Admin: 07/01/19 13:08 Dose: 2 unit Documented by: Lorazepam (Ativan) 2 mg IV Q1HR PRN PRN Reason: CIWA-Ar 8-15 Lorazepam (Ativan) 4 mg IV Q1HR PRN PRN Reason: CIWA-Ar 16-25 Lorazepam (Ativan) 4 mg IV Q15MIN PRN PRN Reason: CIWA-Ar >25 Metformin HCl (Glucophage) 500 mg PO BIDDIAB [facility] Last Admin: 07/01/19 07:49 Dose: 500 mg Documented by: Multivitamins (Theragran Tab) 1 each PO QDAY [facility] Last Admin: 07/01/19 13:08 Dose: 1 each Documented by: Ondansetron HCl (Zofran) 4 mg IV Q8H PRN PRN Reason: Nausea And Vomiting Sodium Chloride (Sodium Chloride Flush Syringe 10 Ml) 10 ml IV BID [facility] Last Admin: 07/01/19 13:09 Dose: 10 ml Documented by: Sodium Chloride (Sodium Chloride Flush Syringe 10 Ml) 10 ml IV PRN PRN PRN Reason: LINE FLUSH Thiamine HCl (Vitamin B-1) 100 mg PO QDAY [facility] Last Admin: 07/01/19 13:08 Dose: 100 mg Documented by: Physical Examination - Vital Signs Vital Signs: Vital Signs Temp Pulse Resp BP Pulse Ox 98.3 F 81 29 H 160/82 99 07/01/19 02:07 07/01/19 02:07 07/01/19 02:07 07/01/19 02:07 07/01/19 02:07 Results - Laboratory Findings CBC and BMP: 07/01/19 02:36 07/01/19 02:36 Abnormal Lab Findings: Abnormal Labs 07/01/19 07/01/19 07/01/19 02:36 02:36 02:36 MCHC 35 H Lymph % (Auto) 37.1 H [place] % (Auto) 9.5 H [place] # 0.9 H PT 11.7 L Sodium 134 L Potassium 3.2 L Chloride 93.4 L BUN 8 L Glucose 285 H POC Glucose Hemoglobin A1c Lactic Acid Salicylates Acetaminophen 07/01/19 07/01/19 07/01/19 02:36 02:36 02:36 MCHC Lymph % (Auto) [place] % (Auto) [place] # PT Sodium Potassium Chloride BUN Glucose POC Glucose Hemoglobin A1c Lactic Acid 4.40 H* Salicylates < 0.3 L Acetaminophen < 5.0 L 07/01/19 07/01/19 07/01/19 02:38 02:43 03:59 MCHC Lymph % (Auto) [place] % (Auto) [place] # PT Sodium Potassium Chloride BUN Glucose POC Glucose 244 H Hemoglobin A1c 8.6 H Lactic Acid 2.20 H* Salicylates Acetaminophen 07/01/19 07:27 MCHC Lymph % (Auto) [place] % (Auto) [place] # PT Sodium Potassium Chloride BUN Glucose POC Glucose 199 H Hemoglobin A1c Lactic Acid Salicylates Acetaminophen Assessment and Plan NEUROLOGY CONSULT REPORT. MR. POE IS A 54 YR OLD MALE WITH HIST OF HT, DIABETES,TIA IN THE PAST WHO DEVELOPED AN EPOSODE OF SUDDEN LOSS OF CONSCIOUSNESS ON 06.30.2019. PATIENT'S DAUGHTER CALLED THE EMS AND HE WAS BROUGHT TO THE HOSPITAL. WHEN HE ARRIVED AT ER HE DID NOT KNOE HOW HE GOT HERE. ONLY THING HE REMEMBERS WAS THAT HE WAS DRINKING BEER WITH HIS BROTHER IN LAW AT HIS HOME AND NOTHING AFTER THAT. HE STATES THAT HE HAD SIMILAR EOPISODE ONE WEEK AGO IN [place]. AND MANY YEARS AGO WELL. UPON ADMISSION ELECTROLYTES DID NOT SHOW ANY SIGNIFICANT ABNORMALITIES AND THERE WAS NO EVIDENCE OF INFECTION. MRI AND MRA OF THE BRAIN WAS ALSO NORMAL.PATIENT REPORTS EACH TYPE AFTER THE EPISODES HE DEVELOPES TERRIBLE POST ICTAL HEADACHE. PHYSICAL EXAMINATION : IN NOACUTE DISTESS. PATIENT IS ALAERT AND APPROPRIATE AND AND INSIGHT INTO HIS PROBLEMS AND ANSWERS QUESTIONS APPROPRIATELY. HEART- NORMAL RATE AND RYTHM CAROTID- BOTH PALPABLE,NO BRUIT CRANIAL NERVES- ALL CRANIAL NERVES ARE WITH IN NORMAL LIMIT. MOTOR. MILD WEAKNESS OF LEFT UPPER EXTREMITY. STRENGTH RT UPPER AND LOWER EXTREMITY WAS NORMAL REFLEXES- ALL REFLEXES IN BOTH UPPER AND LOWER EXTREMITIES DID NOT SHOW ANY ASYMMETRY. BOTH ANKLE REFLEXES ARE ABSENT.. CORDINATION-WAS WITHIN NORMAL LIMIT. SENSORY- DECREASED SENSATION TO PIN PRICK ON BOTH FEET UPTO ABOUT 3 INCHES INTO THE LEGS. IMPRESSION. #1. PATIENT SEEMS TO HAVE SEIZURE, HE WAS POST ICTAL WHEN HE WAS BROUGHT TO THE HOSPITAL 3, DIABETIC PERIPHERAL NEUROPATHY FROM POOR BLOOD SUGAR CONTROL. RECOMMENDATION. #. GABAPENTINE 400MG PO BID FOR SEIZURE, MAY INCREASE FURTHER IF NEEDED ON OUT PATIENT FOLLOW UP. # ASPIRIN 81 MG PO QD PATIENT HAS HIST OF TIA. #3. PERIODIC FOLLOW UP WITH NEUROLOGIST OUT PATIENT. #4. SHOULD NEVER DRINK ALCOHOL, PATIENT SHOULD BE COUNSELED THAT IF A SEIZURE PATIENT DRINKS ALCOHOL THERE IS VERY HIGH RISK OF MORTALITY.
--- NOTE | 2019-07-01 22:56 | Progress Note ---
Assessment and Plan Assessment and plan: 54-year-old man with history of hypertension diabetes and previous TIA who was at home drinking beer with his brother in law, and doesn't remember how he got here, He remembers having a MONTESINOS before he "blacked out". Patient had a recent similar episode last week in [place], and he also states that he had similar presentation when he had his stroke years ago.. His brought him into the hospital because he was altered and not himself, no focal deficits on exam. UDS is positive for marijuana. Patient now oriented with no recollection of what happened during the interim period Chest x-ray: report reviewed (Lungs/Pleura: No acute air space or interstitial disease. ), image reviewed Imaging and Cardiology: CT Head: Findings: Parenchyma: No acute intracranial hemorrhage or parenchymal abnormality. Ventricles: Ventricles are normal in size and appear symmetric. Soft tissues: Soft tissues including the orbits appear normal. Bones: No acute osseous abnormality. Sinuses: Small mucous retention cyst in the right frontal sinus. Remaining sinuses and mastoid air cells are clear. Acute metobolic encephalopathy, CT head negative, Stroke w/o, echo, DDX include non convulsive seizure given LA, stroke MONTESINOS- received tylenol, MR brain pending- resolving Hypokalemia; repleted ETOH Use disorder Seizure disorder secondary to ETOH abuse for this admit: SEIZURE Precaution. Neurology eval pending at the time of my visit Lactic Acidosis: NO evidence of infection. Give additional fluid and monitor. Diabetes with hyperglycemia; SSI, A1c 8 LE neuropathy; patient states its getting worse, continue neurontin, will consider increasing dose tomorrow after stroke w/o. Encouraged to quit etoh use. effect of etoh in this aspect aslo discussed Marijuana Use disorder: Patient counseled about marijuana cessation DVT PPX -On Lovenox Advance Directives: Discussed with the patient. VTE prophylaxis?: Chemical Plan of care discussed with patient/family: Yes History Interval history: Patient seen and examined, reports binge drinkin on the weekend and no prior hx of syncope. At this time although lathergic has no new complaints. Hospitalist Physical - Constitutional Vitals: Temp Pulse Resp BP Pulse Ox 98.0 F 62 18 123/76 99 07/01/19 19:38 07/01/19 19:50 07/01/19 19:38 07/01/19 19:38 07/01/19 19:38 General appearance: Present: no acute distress, well-nourished - EENT Eyes: Present: PERRL ENT: hearing intact - Neck Neck: Present: supple, normal ROM - Respiratory Respiratory effort: normal Respiratory: bilateral: CTA - Cardiovascular Rhythm: regular Heart Sounds: Present: S1 & S2. Absent: systolic murmur - Extremities Extremities: no ischemia, pulses intact, pulses symmetrical, No edema, normal temperature, normal color, Full ROM Peripheral Pulses: within normal limits - Abdominal General gastrointestinal: soft, non-tender, non-distended, normal bowel sounds - Integumentary Integumentary: Present: warm, dry - Psychiatric Psychiatric: appropriate mood/affect, intact judgment & insight, memory intact, cooperative - Neurologic Neurologic: CNII-XII intact, other (has a limp with ambulation- chronic) - Allied Health Allied health notes reviewed: nursing, PT, case management Results - Labs CBC & Chem 7: 07/01/19 02:36 07/01/19 02:36 Labs: Laboratory Last Values WBC 9.0 K/mm3 (4.5-11.0) 07/01/19 02:36 RBC 4.44 M/mm3 (3.65-5.03) 07/01/19 02:36 Hgb 14.3 gm/dl (11.8-15.2) 07/01/19 02:36 Hct 41.0 % (35.5-45.6) 07/01/19 02:36 MCV 92 fl (84-94) 07/01/19 02:36 MCH 32 pg (28-32) 07/01/19 02:36 MCHC 35 % (32-34) H 07/01/19 02:36 RDW 13.8 % (13.2-15.2) 07/01/19 02:36 Plt Count 221 K/mm3 (140-440) 07/01/19 02:36 Lymph % (Auto) 37.1 % (13.4-35.0) H 07/01/19 02:36 [place] % (Auto) 9.5 % (0.0-7.3) H 07/01/19 02:36 Eos % (Auto) 2.0 % (0.0-4.3) 07/01/19 02:36 Baso % (Auto) 0.2 % (0.0-1.8) 07/01/19 02:36 Lymph # 3.3 K/mm3 (1.2-5.4) 07/01/19 02:36 [place] # 0.9 K/mm3 (0.0-0.8) H 07/01/19 02:36 Eos # 0.2 K/mm3 (0.0-0.4) 07/01/19 02:36 Baso # 0.0 K/mm3 (0.0-0.1) 07/01/19 02:36 Seg Neutrophils % 51.2 % (40.0-70.0) 07/01/19 02:36 Seg Neutrophils # 4.6 K/mm3 (1.8-7.7) 07/01/19 02:36 PT 11.7 Sec. (12.2-14.9) L 07/01/19 02:36 INR 0.88 (0.87-1.13) 07/01/19 02:36 APTT 26.9 Sec. (24.2-36.6) 07/01/19 02:36 Sodium 134 mmol/L (137-145) L 07/01/19 02:36 Potassium 3.2 mmol/L (3.6-5.0) L 07/01/19 02:36 Chloride 93.4 mmol/L (98-107) L 07/01/19 02:36 Carbon Dioxide 23 mmol/L (22-30) 07/01/19 02:36 21 mmol/L 07/01/19 02:36 BUN 8 mg/dL (9-20) L 07/01/19 02:36 0.8 mg/dL (0.8-1.5) 07/01/19 02:36 Estimated GFR > 60 ml/min 07/01/19 02:36 10 % 07/01/19 02:36 Glucose 285 mg/dL (75-100) H 07/01/19 02:36 POC Glucose 199 (70-105) H 07/01/19 07:27 8.6 % (4-6) H 07/01/19 02:38 Lactic Acid 1.50 mmol/L (0.7-2.0) 07/01/19 05:34 Calcium 9.5 mg/dL (8.4-10.2) 07/01/19 02:36 Magnesium 1.90 mg/dL (1.7-2.3) 07/01/19 Unknown 0.20 mg/dL (0.1-1.2) 07/01/19 02:36 AST 15 units/L (5-40) 07/01/19 02:36 ALT 18 units/L (7-56) 07/01/19 02:36 64 units/L (35-129) 07/01/19 02:36 < 0.010 ng/mL (0.00-0.029) 07/01/19 03:59 7.8 g/dL (6.3-8.2) 07/01/19 02:36 4.1 g/dL (3.9-5) 07/01/19 02:36 1.1 % 07/01/19 02:36 Straw (Yellow) 07/01/19 03:40 Clear (Clear) 07/01/19 03:40 5.0 (5.0-7.0) 07/01/19 03:40 Ur Specific [place] 1.008 (1.003-1.030) 07/01/19 03:40 <15 mg/dl mg/dL (Negative) 07/01/19 03:40 >=500 mg/dL (Negative) 07/01/19 03:40 Tr mg/dL (Negative) 07/01/19 03:40 Neg (Negative) 07/01/19 03:40 Neg (Negative) 07/01/19 03:40 Neg (Negative) 07/01/19 03:40 < 2.0 mg/dL (<2.0) 07/01/19 03:40 Ur Leukocyte Esterase Neg (Negative) 07/01/19 03:40 < 1.0 /HPF (0.0-6.0) 07/01/19 03:40 < 1.0 /HPF (0.0-6.0) 07/01/19 03:40 Few /HPF 07/01/19 03:40 Salicylates < 0.3 mg/dL (2.8-20.0) L 07/01/19 02:36 Presumptive negative 07/01/19 03:40 Presumptive negative 07/01/19 03:40 Acetaminophen < 5.0 ug/mL (10.0-30.0) L 07/01/19 02:36 Ur Barbiturates Screen Presumptive negative 07/01/19 03:40 Ur Phencyclidine Scrn Presumptive negative 07/01/19 03:40 Ur Amphetamines Screen Presumptive negative 07/01/19 03:40 U Benzodiazepines Scrn Presumptive negative 07/01/19 03:40 Presumptive negative 07/01/19 03:40 U Marijuana (THC) Screen Presumptive positive 07/01/19 03:40 Disclamer 07/01/19 03:40 Plasma/Serum Alcohol < 0.01 % (0-0.07) 07/01/19 02:36 Active Medications - Current Medications Current Medications: Generic Name Dose Route Start Last Admin Trade Name Freq PRN Reason Stop Dose Admin Acetaminophen 650 mg 07/01/19 05:36 07/01/19 18:06 Tylenol PO 650 mg Q4H PRN Administration Pain MILD(1-3)/Fever >100.5/MONTESINOS Atorvastatin Calcium 40 mg 07/01/19 22:00 07/01/19 22:12 Lipitor PO 40 mg QHS MAREK Administration Chlordiazepoxide HCl 50 mg 07/01/19 12:10 Librium PO Q1HR PRN CIWA-Ar 8-15 Chlordiazepoxide HCl 100 mg 07/01/19 12:10 Librium PO Q1HR PRN CIWA-Ar 16-25 Dextrose 50 ml 07/01/19 05:36 D50w (25gm) Syringe IV PRN PRN Hypoglycemia Docusate Sodium 100 mg 07/01/19 10:00 07/01/19 22:12 Colace PO Not Given BID MAREK Enoxaparin Sodium 40 mg 07/01/19 10:00 07/01/19 13:07 Lovenox SUB-Q 40 mg QDAY MAREK Administration Folic Acid 1 mg 07/01/19 13:00 07/01/19 13:08 Folvite PO 1 mg QDAY MAREK Administration Gabapentin 300 mg 07/01/19 10:00 07/01/19 22:12 Neurontin PO 300 mg BID MAREK Administration Sodium Chloride 1,000 mls @ 100 mls/hr 07/01/19 06:00 Nacl 0.9% 1000 Ml IV DIRECT [facility]AREK Insulin Human Lispro 0 unit 07/01/19 07:30 07/01/19 22:12 Humalog SUB-Q 3 unit ACHS MAREK Administration Protocol Lorazepam 2 mg 07/01/19 12:10 Ativan IV Q1HR PRN CIWA-Ar 8-15 Lorazepam 4 mg 07/01/19 12:10 Ativan IV Q1HR PRN CIWA-Ar 16-25 Lorazepam 4 mg 07/01/19 12:10 Ativan IV Q15MIN PRN CIWA-Ar >25 Metformin HCl 500 mg 07/01/19 08:00 07/01/19 18:02 Glucophage PO 500 mg BIDDIAB MAREK Administration Multivitamins 1 each 07/01/19 13:00 07/01/19 13:08 Theragran Tab PO 1 each QDAY MRAEK Administration Ondansetron HCl 4 mg 07/01/19 05:36 Zofran IV Q8H PRN Nausea And Vomiting Sodium Chloride 10 ml 07/01/19 10:00 07/01/19 22:12 Sodium Chloride Flush Syringe 10 Ml IV 10 ml BID MAREK Administration Sodium Chloride 10 ml 07/01/19 05:36 Sodium Chloride Flush Syringe 10 Ml IV PRN PRN LINE FLUSH Thiamine HCl 100 mg 07/01/19 13:00 07/01/19 13:08 Vitamin B-1 PO 100 mg QDAY MAREK Administration
--- NOTE | 2019-07-01 22:57 | Event Note ---
Date: 07/01/19 Patient seen and examined, extensive counseling given in respect to alcohol and Marijuana. Continue to follow.
[2019-07-02 06:22] LABS: Basophils % (Auto) 0.5 % (0.0-1.8); Eosinophils # (Auto) 0.2 K/mm3 (0.0-0.4); Eosinophils % (Auto) 2.3 % (0.0-4.3); Hematocrit 42.1 % (35.5-45.6); Hemoglobin 14.4 gm/dl (11.8-15.2); Lymphocytes # (Auto) 3.1 K/mm3 (1.2-5.4); Lymphocytes % (Auto) 41.9 % (13.4-35.0); Mean Corpuscular HGB Conc 34 % (32-34); Mean Corpuscular Volume 94 fl (84-94); Monocytes # (Auto) 0.8 K/mm3 (0.0-0.8); Monocytes % (Auto) 11.3 % (0.0-7.3); Platelet Count 226 K/mm3 (140-440); Red Cell Distribution Width 14.2 % (13.2-15.2)
[2019-07-02 07:29] LABS: BUN/Creatinine Ratio 10; Blood Urea Nitrogen 7 mg/dL (9-20); Calcium 9.2 mg/dL (8.4-10.2); Chol/HDL Ratio 4.93 %; HDL Cholesterol 46 mg/dL (40-59); Hemolysis Index 3; LDL Cholesterol,Direct 139 mg/dL (50-130)
[2019-07-02] MEDS: HumaLOG SUB-Q SCH ×2 (08:09→13:10)
[2019-07-02] MEDS: NEURONTIN PO SCH (09:21)
[2019-07-02] MEDS: SODIUM CHLORIDE FLUSH SYRINGE 10 ML IV SCH (09:21)
[2019-07-02] MEDS: LOVENOX SUB-Q SCH (09:21)
[2019-07-02] MEDS: THERAGRAN Tab PO SCH (09:21)
[2019-07-02] MEDS: FOLVITE PO SCH (09:21)
[2019-07-02] MEDS: VITAMIN B-1 PO SCH (09:21)
[2019-07-02] MEDS: GLUCOPHAGE PO SCH (09:21)
[2019-07-02] MEDS: COLACE PO SCH (09:21)
[2019-07-02] MEDS ORDERED: NACL 0.9% 1000 ML 1,000 ML IV ONE (10:49)
--- NOTE | 2019-07-02 10:55 | Discharge Summary ---
Providers - Providers Date of Admission: 07/01/19 05:36 Attending physician: PAULINA VAZQUEZ MD 07/01/19 Consult to Physician [CONS] Routine Comment: Consulting Provider: SAM MURPHY Physician Instructions: Reason For Exam: ?? TIA hx of TIA 07/01/19 06:37 Occupational Therapy Evaluate and Treat [CONS] Routine Comment: Reason For Exam: Neuro deficits Physical Therapy Evaluation and Treat [CONS] Routine Comment: Reason For Exam: Neuro deficits 07/01/19 11:28 Consult to Dietitian/Nutrition [CONS] Routine Physician Instructions: Reason For Exam: Reason for Consult: Poor oral intake [facility] Reason for admission: seizure Condition: Stable Hospital course: 54-year-old man with history of hypertension diabetes and previous TIA who was at home drinking beer with his brother in law, and doesn't remember how he got here, He remembers having a MONTESINOS before he "blacked out". Patient had a recent similar episode last week in [place], and he also states that he had similar presentation when he had his stroke years ago.. His brought him into the hospital because he was altered and not himself, no focal deficits on exam. UDS is positive for marijuana. Patient now oriented with no recollection of what happened during the interim period. Neurology evaluated the patient and felt this was secondary to Seizure disorder. The patients symptoms improved and extensive counselling was given on precautions and acitivity level till cleared by Neurology in 6 months out patient per [place]. We discussed extensively the need to better control his blood sugar. he verablized understanding Chest x-ray: report reviewed (Lungs/Pleura: No acute air space or interstitial disease. ), image reviewed MR brain IMPRESSION: No significant abnormality. CT Head: Findings: Parenchyma: No acute intracranial hemorrhage or parenchymal abnormality. Ventricles: Ventricles are normal in size and appear symmetric. Soft tissues: Soft tissues including the orbits appear normal. Bones: No acute osseous abnormality. Sinuses: Small mucous retention cyst in the right frontal sinus. Remaining sinuses and mastoid air cells are clear. Acute metobolic encephalopathy, CT head negative, Stroke w/o, echo, DDX include non convulsive seizure given LA, stroke advised to quit etoh. risk discussed in detail and patient verbalized understanding MONTESINOS- received tylenol, resolved Hypokalemia; repleted ETOH Use disorder Seizure disorder secondary to ETOH abuse for this admit: SEIZURE Precaution. Lactic Acidosis: NO evidence of infection. Give additional fluid and monitor. Diabetes with hyperglycemia; SSI, A1c 8 LE neuropathy;Neurontin increased in dose per neurology recommendation Marijuana Use disorder: Patient counseled about marijuana cessation Disposition: DC-01 TO HOME OR SELFCARE Time spent for discharge: 35 mins Core Measure Documentation - Palliative Care Palliative Care/ Comfort Measures: Not Applicable - Core Measures Any of the following diagnoses?: none Exam - Physical Exam Narrative exam: General appearance: Present: no acute distress, well-nourished - EENT Eyes: Present: PERRL ENT: hearing intact - Neck Neck: Present: supple, normal ROM - Respiratory Respiratory effort: normal Respiratory: bilateral: CTA - Cardiovascular Rhythm: regular Heart Sounds: Present: S1 & S2. Absent: systolic murmur - Extremities Extremities: no ischemia, pulses intact, pulses symmetrical, No edema, normal temperature, normal color, Full ROM Peripheral Pulses: within normal limits - Abdominal General gastrointestinal: soft, non-tender, non-distended, normal bowel sounds - Integumentary Integumentary: Present: warm, dry - Psychiatric Psychiatric: appropriate mood/affect, intact judgment & insight, memory intact, cooperative - Neurologic Neurologic: CNII-XII intact, other (has a limp with ambulation- chronic) - Allied Health Allied health notes reviewed: nursing, PT, case management - Constitutional Vitals: Temp Pulse Resp BP Pulse Ox 98.0 F 65 18 137/77 99 07/02/19 07:28 07/02/19 07:28 07/02/19 07:28 07/02/19 07:28 07/02/19 07:28 Plan Activity: advance as tolerated, fall precautions Diet: low fat Special Instructions: record daily BP diary, record blood sugar diary, smoking cessation Follow up with: SARA LIU MD [Primary Care Provider] - 3-5 Days Prescriptions: AtorvaSTATin [Lipitor] 40 mg PO QHS #30 tablet Aspirin [Aspirin BABY CHEW TAB] 81 mg PO QDAY #30 tab.chew Folic Acid [Folvite] 1 mg PO QDAY #30 tablet Gabapentin [Neurontin] 400 mg PO BID #60 capsule Thiamine [Vitamin B-1] 100 mg PO QDAY #30 tablet
[2019-07-02 11:28] VITALS: BP 145/83
== END 2019-07-02 14:50 | disposition home or self-care (01) | DRG 101 ==
LOC: EDBD → ED 01:59 → 3A 05:36 → 4A 06:45
PROVIDERS: ADMIT Internal Medicine; ATTEND Internal Medicine
DX: G40.909 Epilepsy, unspecified, not intractable, without status epilepticus (principal); E87.2 Acidosis; F10.188 Alcohol abuse with other alcohol-induced disorder; F17.290 Nicotine dependence, other tobacco product, uncomplicated; F12.10 Cannabis abuse, uncomplicated; E11.42 Type 2 diabetes mellitus with diabetic polyneuropathy; Y90.9 Presence of alcohol in blood, level not specified; F12.19 Cannabis abuse with unspecified cannabis-induced disorder; E11.65 Type 2 diabetes mellitus with hyperglycemia; E87.6 Hypokalemia; I10 Essential (primary) hypertension; Z86.73 Personal history of transient ischemic attack (TIA), and cerebral infarction without residual deficits; Z71.51 Drug abuse counseling and surveillance of drug abuser; Z79.84 Long term (current) use of oral hypoglycemic drugs
CPT/HCPCS: 36415; 70450; 70544; 70551; 71045; 80048; 80053; 80061; 80307; 80320; 81001; 82140; 82962; 83036; 83735; 84484; 85025; 85610; 85730; 87040; 87086; 87116; 93005; 93010; 93306; 93880; 95819; 96372; 96374; 99406; G0378; A9270-GY; G0480; J1650; J1815; J7030

== ENCOUNTER 2019-11-30 22:16 | Inpatient (IN) | payer OTHER ==
[2019-11-30] MEDS ORDERED: SODIUM CHLORIDE 0.9% 500 ML 500 ML IV ONE (22:33)
[2019-11-30] MEDS ORDERED: CEFEPIME/NS 2 GM/100 ML 2 GM/100 ML BAG IV ONE (22:53)
--- NOTE | 2019-11-30 22:54 | Emergency Department Report ---
ED Chest Pain HPI - General Chief Complaint: Chest Pain Stated Complaint: CHEST PAIN Time Seen by Provider: 11/30/19 22:52 Source: patient Mode of arrival: Wheelchair Limitations: No Limitations - History of Present Illness Initial Comments: Patient is a 54-year-old male that presents emergency room with complaints of chest pain. Patient states his chest pain started yesterday and he took 2 nitroglycerin and his chest pain resolved. Patient states it then returned today at 3 PM. Patient states the pain is better with rest and worse with exertion and movement. Patient states the pain started while he was resting. Patient denies cough. Patient states he has occasional shortness of breath. Patient states his shortness of breath worse with exertion and better with rest. Patient denies fever. Patient denies cough. Patient denies nausea vomiting. Patient denies diaphoresis. Patient states his chest pain as a 10 out of 10. Patient states he has a past medical history of diabetes, hypertension, hyperlipidemia, a stroke 8 months ago and the patient still smokes. MD Complaint: chest pain -: Sudden Onset: during rest Pain Location: substernal, left chest Pain Radiation: none Severity scale (0 -10): 10 Quality: sharp Consistency: constant Improves With: rest, remaining still Worsens With: exertion, movement re: dyspnea. denies: nausea, vomting, diaphoresis, sense of impending doom Other Symptoms: denies: cough, fever, syncope, rash, acid taste in mouth, leg swelling, palpitations, burping Treatments Prior to Arrival: nitroglycerin Aspirin use within the Past 7 Days: (1) Yes - Related Data On Oral Contraceptives: No Home Medications Medication Instructions Recorded Confirmed Last Taken amLODIPine 10 mg PO DAILY 07/01/19 07/01/19 Unknown carvediloL [Coreg] 12.5 mg PO BID 07/01/19 07/01/19 Unknown hydroCHLOROthiazide [HCTZ] 25 mg PO QDAY 07/01/19 07/01/19 Unknown metFORMIN [Glucophage] 500 mg PO BID 07/01/19 07/01/19 Unknown Previous Rx's Medication Instructions Recorded Last Taken Type Aspirin [Aspirin BABY CHEW TAB] 81 mg PO QDAY #30 tab.chew 07/02/19 Unknown Rx AtorvaSTATin [Lipitor] 40 mg PO QHS #30 tablet 07/02/19 Unknown Rx Folic Acid [Folvite] 1 mg PO QDAY #30 tablet 07/02/19 Unknown Rx Gabapentin 400 mg PO BID #60 capsule 07/02/19 Unknown Rx Thiamine [Vitamin B-1] 100 mg PO QDAY #30 tablet 07/02/19 Unknown Rx Allergies Allergy/AdvReac Type Severity Reaction Status Date / Time hydromorphone [From Dilaudid] Allergy Itching Verified 11/30/19 22:20 morphine Allergy Unknown Verified 11/30/19 22:20 Heart Score - HEART Score History: Highly suspicious EKG: Non-specific Age: 45-65 Risk factors: > 3 risk factors or hx of atherosclerotic disease Troponin: < normal limit HEART Score: 6 ED Review of Systems ROS: Stated complaint: CHEST PAIN Other details as noted in HPI Constitutional: denies: chills, fever Eyes: denies: eye pain, eye discharge, vision change ENT: denies: ear pain, throat pain Respiratory: shortness of breath. denies: cough, wheezing Cardiovascular: chest pain. denies: palpitations Endocrine: no symptoms reported Gastrointestinal: denies: abdominal pain, nausea, diarrhea Genitourinary: denies: urgency, dysuria Musculoskeletal: denies: back pain, joint swelling, arthralgia Skin: denies: rash, lesions Neurological: denies: headache, weakness, paresthesias Psychiatric: denies: anxiety, depression Hematological/Lymphatic: denies: easy bleeding, easy bruising ED Past Medical Hx - Past Medical History Previous Medical History?: Yes Hx Hypertension: Yes Hx CVA: Yes (left side weakness) Hx Heart Attack/AMI: Yes Hx Congestive Heart Failure: Yes Hx Diabetes: Yes (NIDDM) Hx Arthritis: Yes Hx Headaches / Migraines: Yes Hx COPD: No Hx Tuberculosis: No Hx HIV: No Additional medical history: TIA /cva - Surgical History Past Surgical History?: No - Family History Family history: no significant - Social History Smoking Status: Current Every Day Smoker Substance Use Type: None - Medications Home Medications: Home Medications Medication Instructions Recorded Confirmed Last Taken Type amLODIPine 10 mg PO DAILY 07/01/19 07/01/19 Unknown History carvediloL [Coreg] 12.5 mg PO BID 07/01/19 07/01/19 Unknown History hydroCHLOROthiazide [HCTZ] 25 mg PO QDAY 07/01/19 07/01/19 Unknown History metFORMIN [Glucophage] 500 mg PO BID 07/01/19 07/01/19 Unknown History Aspirin [Aspirin BABY CHEW TAB] 81 mg PO QDAY #30 tab.chew 07/02/19 Unknown Rx AtorvaSTATin [Lipitor] 40 mg PO QHS #30 tablet 07/02/19 Unknown Rx Folic Acid [Folvite] 1 mg PO QDAY #30 tablet 07/02/19 Unknown Rx Gabapentin 400 mg PO BID #60 capsule 07/02/19 Unknown Rx Thiamine [Vitamin B-1] 100 mg PO QDAY #30 tablet 07/02/19 Unknown Rx ED Physical Exam - General Limitations: No Limitations General appearance: alert, in no apparent distress - Head Head exam: Present: atraumatic, normocephalic - Eye Eye exam: Present: normal appearance, PERRL Pupils: Present: normal accommodation - ENT ENT exam: Present: mucous membranes moist - Neck Neck exam: Present: normal inspection, full ROM. Absent: tenderness, meningismus - Respiratory Respiratory exam: Present: normal lung sounds bilaterally, rhonchi - Cardiovascular Cardiovascular Exam: Present: regular rate, normal rhythm. Absent: systolic murmur, diastolic murmur, rubs, gallop - GI/Abdominal GI/Abdominal exam: Present: soft, normal bowel sounds - Rectal Rectal exam: Present: deferred - Extremities Exam Extremities exam: Present: normal inspection - Back Exam Back exam: Present: normal inspection - Neurological Exam Neurological exam: Present: alert, oriented X3 - Psychiatric Psychiatric exam: Present: normal affect, normal mood - Skin Skin exam: Present: warm, dry, intact, normal color. Absent: rash ED Course Vital Signs 11/30/19 12/01/19 12/01/19 22:22 03:42 04:00 Temperature 102.2 F H 98.3 F Pulse Rate 118 H 73 Respiratory 22 12 Rate Blood Pressure 157/100 115/68 [Right] O2 Sat by Pulse 97 97 Oximetry - Reevaluation(s) Reevaluation #1: I discussed all results with patient. Discussed plan of care with patient. Patient agrees with plan of care. Patient will be admitted to the hospitalist service. 12/01/19 03:37 - Consultations Consultation #1: Hospitalist consultation for admission. Hospitalist admit patient. 12/01/19 03:41 JAMES score - James Score Age > 65: (0) No Aspirin use within the Past 7 Days: (1) Yes 3 or more CAD Risk Factors: (1) Yes 2 or more Angina events in past 24 hrs: (1) Yes Known CAD with more than 50% Stenosis: (0) No Elevated Cardiac Markers: (0) No ST Deviation Greater than 0.5mm: (0) No JAMES Score: 3 ED Medical Decision Making - Lab Data Result diagrams: 12/01/19 04:48 11/30/19 22:53 - EKG Data -: EKG Interpreted by Me EKG shows normal: sinus rhythm, axis, intervals, QRS complexes, ST-T waves Rate: tachycardia - Radiology Data Radiology results: report reviewed CT ANGIOGRAPHY OF THE CHEST WITH INTRAVENOUS CONTRAST AND MULTIPLANAR MIP RECONSTRUCTIONS INDICATION / CLINICAL INFORMATION: Chest pain, shortness of breath and fever. TECHNIQUE: Axial CT images were obtained after injection of 100 cc Omnipaque 350 IV contrast using CTA protocol. 3 plane MIP / 3D reconstructions were produced. All CT scans at this location are performed using CT dose reduction for ALARA by means of automated exposure control. COMPARISON: None available. FINDINGS: There is good opacification of the pulmonary arterial system bilaterally without intraluminal filling defect to suggest acute PTE. The thoracic aorta is normal in caliber without dissection. There is a coronary artery stent. Mild coronary artery calcification is noted. The tracheobronchial tree is normal. There is mild paraseptal emphysema in the lung apices. The lungs are otherwise clear. There is no evidence of adenopathy or effusion. The visualized upper abdomen is normal. There is mild spondylosis. IMPRESSION: No evidence of acute PTE or pneumonia. - Medical Decision Making Patient is a 54-year-old mellitus emergency room with complaints of chest pain and shortness of breath. Patient's initial clinical findings showed patient be tachycardic and have fever. A code sepsis ran in ER. Patient's lactic acid negative. Patient's labs unremarkable except for elevated WBC. Patient given antibiotics and multiple saline boluses. Patient's tachycardia improved. Patient's lung sounds improved with steroids and antibiotics. Patient admitted to the hospitalist service. - Differential Diagnosis chest pain, ACS, SOB, bronchitis, COPD exacerbation.fever. uri Critical Care Time: Yes Critical care time in (mins) excluding proc time.: 45 Critical care attestation.: If time is entered above; I have spent that time in minutes in the direct care of this critically ill patient, excluding procedure time. Critical Care Time: 45 minutes ED Disposition Clinical Impression: SOB (shortness of breath), COPD exacerbation, Tachycardia, SIRS (systemic inflammatory response syndrome) Chest pain Qualifiers: Chest pain type: unspecified Qualified Code(s): R07.9 - Chest pain, unspecified Fever Qualifiers: Fever type: unspecified Qualified Code(s): R50.9 - Fever, unspecified Disposition: 09 OP ADMIT IP TO THIS HOSP Is pt being admited?: Yes Does the pt Need Aspirin: No Condition: Critical Time of Disposition: 03:44
[2019-11-30] MEDS ORDERED: SODIUM CHLORIDE 0.9% 1000 ML IV SOLN IV ONE (23:04)
--- NOTE | 2019-11-30 23:18 | XRay Report ---
CHEST 1 VIEW 10:51 PM INDICATION / CLINICAL INFORMATION: Possible sepsis. COMPARISON: 07/01/2019. FINDINGS: SUPPORT DEVICES: None. HEART / MEDIASTINUM: The heart size and pulmonary vasculature are normal. LUNGS / PLEURA: No significant pulmonary or pleural abnormality. No pneumothorax. ADDITIONAL FINDINGS: No significant additional findings. IMPRESSION: No acute abnormality or significant change. There is no evidence of pneumonia. Signer Name: Talha Singh MD Signed: 11/30/2019 11:14 PM Workstation Name: [id number]
[2019-11-30 23:33] LABS: Basophils # (Auto) 0.1 K/mm3 (0.0-0.1); Basophils % (Auto) 0.6 % (0.0-1.8); Eosinophils % (Auto) 0.1 % (0.0-4.3); Hematocrit 45.2 % (35.5-45.6); Hemoglobin 15.3 gm/dl (11.8-15.2); Lymphocytes # (Auto) 2.8 K/mm3 (1.2-5.4); Lymphocytes % (Auto) 13.9 % (13.4-35.0); Mean Corpuscular HGB Conc 34 % (32-34); Mean Corpuscular Volume 93 fl (84-94); Monocytes # (Auto) 2.1 K/mm3 (0.0-0.8); Monocytes % (Auto) 10.4 % (0.0-7.3); Platelet Count 219 K/mm3 (140-440); Red Blood Count 4.88 M/mm3 (3.65-5.03); Red Cell Distribution Width 13.5 % (13.2-15.2)
[2019-11-30 23:43] LABS: INR 1.03 (0.87-1.13)
[2019-11-30 23:57] LABS: Alanine Aminotransferase 16 units/L (7-56); Albumin 4.3 g/dL (3.9-5); BUN/Creatinine Ratio 8; Blood Urea Nitrogen 7 mg/dL (9-20); Calcium 9.6 mg/dL (8.4-10.2); Hemolysis Index 4
[2019-12-01] MEDS ORDERED: ACETAMINOPHEN 500 MG TAB PO ONE
[2019-12-01] MEDS ORDERED: ACETAMINOPHEN 500 MG TAB ONE (00:27)
--- NOTE | 2019-12-01 02:49 | Cat Scan Report ---
CT ANGIOGRAPHY OF THE CHEST WITH INTRAVENOUS CONTRAST AND MULTIPLANAR MIP RECONSTRUCTIONS INDICATION / CLINICAL INFORMATION: Chest pain, shortness of breath and fever. TECHNIQUE: Axial CT images were obtained after injection of 100 cc Omnipaque 350 IV contrast using CTA protocol. 3 plane MIP / 3D reconstructions were produced. All CT scans at this location are performed using CT dose reduction for ALARA by means of automated exposure control. COMPARISON: None available. FINDINGS: There is good opacification of the pulmonary arterial system bilaterally without intraluminal filling defect to suggest acute PTE. The thoracic aorta is normal in caliber without dissection. There is a coronary artery stent. Mild coronary artery calcification is noted. The tracheobronchial tree is normal. There is mild paraseptal emphysema in the lung apices. The lungs are otherwise clear. There is no evidence of adenopathy or effusion. The visualized upper abdomen is normal. There is mild spondylosis. IMPRESSION: No evidence of acute PTE or pneumonia. Signer Name: Talha Singh MD Signed: 12/01/2019 2:45 AM Workstation Name: [id number]
[2019-12-01] MEDS ORDERED: methylPREDNISolone Sod Succinate 125 MG/2 ML INJ IV ONE (03:26)
[2019-12-01] MEDS ORDERED: DEXTROSE 50% IN WATER (25GM) 50 ML SYRINGE IV PRN (04:16)
[2019-12-01] MEDS ORDERED: ACETAMINOPHEN 325 MG TAB PO PRN (04:16)
[2019-12-01] MEDS ORDERED: ONDANSETRON 4 MG/2 ML INJ IV PRN (04:16)
--- NOTE | 2019-12-01 04:22 | History and Physical Report ---
History of Present Illness History of present illness: 54-year-old man with a history of hypertension, diabetes, coronary artery disease, CVA with left-sided weakness comes emergency room with complaints of left substernal chest pain that started yesterday. He describes the pain as sharp, was constant until he took 2 nitroglycerin that relieved his pain. Intensity of the pain 5/10, no radiation. Denies nausea vomiting, shortness of breath, diaphoresis or palpitation. Admits to generalized weakness, body aches, cough productive of white phlegm Review Of Systems: Constitutional: no weight loss, chills, fever Ears, eyes, nose, mouth and throat: no nasal congestion, no nasal discharge, no sinus pressure, blurry vision, diplopia Neck: No neck pain or rigidity. Cardiovascular: No palpitations, chest pain Respiratory: No cough, shortness of breath Gastrointestinal: No hematochezia, abdominal pain Genitourinary : no dysuria, frequency , hematuria Musculoskeletal: no muscle ache , joint pain Integumentary: no rash, no pruritis Neurological: no parathesias, focal weakness Endocrine: no cold or heat intolerance, no polyuria or polydipsia Hematologic/Lymphatic: no easy bruising, no easy bleeding, no gland swelling Allergic/Immunologic: no urticaria, no angioedema. PAST MEDICAL HISTORY: hypertension, diabetes, CVA,CAD PAST SURGICAL HISTORY: None SOCIAL HISTORY: No alcohol, no drugs, smoke 1/3 pack a day FAMILY HISTORY: hypertension Medications and Allergies Allergies Allergy/AdvReac Type Severity Reaction Status Date / Time hydromorphone [From Dilaudid] Allergy Itching Verified 11/30/19 22:20 morphine Allergy Unknown Verified 11/30/19 22:20 Home Medications Medication Instructions Recorded Confirmed Last Taken Type amLODIPine 10 mg PO DAILY 07/01/19 07/01/19 Unknown History carvediloL [Coreg] 12.5 mg PO BID 07/01/19 07/01/19 Unknown History hydroCHLOROthiazide [HCTZ] 25 mg PO QDAY 07/01/19 07/01/19 Unknown History metFORMIN [Glucophage] 500 mg PO BID 07/01/19 07/01/19 Unknown History Aspirin [Aspirin BABY CHEW TAB] 81 mg PO QDAY #30 tab.chew 07/02/19 Unknown Rx AtorvaSTATin [Lipitor] 40 mg PO QHS #30 tablet 07/02/19 Unknown Rx Folic Acid [Folvite] 1 mg PO QDAY #30 tablet 07/02/19 Unknown Rx Gabapentin 400 mg PO BID #60 capsule 07/02/19 Unknown Rx Thiamine [Vitamin B-1] 100 mg PO QDAY #30 tablet 07/02/19 Unknown Rx Active Meds: Active Medications Acetaminophen (Tylenol) 650 mg PO Q4H PRN PRN Reason: Pain MILD(1-3)/Fever >100.5/MONTESINOS Albuterol/Ipratropium (Duoneb *Not For Prn Use*) 1 ampul IH Q6HRT [facility] Dextrose (D50w (25gm) Syringe) 50 ml IV Q30MIN PRN; Protocol PRN Reason: Hypoglycemia Enoxaparin Sodium (Enoxaparin) 40 mg SUB-Q QDAY [facility] Insulin Human Lispro (Humalog) 0 unit SUB-Q Q6HR [facility]; Protocol Ondansetron HCl (Zofran) 4 mg IV Q8H PRN PRN Reason: Nausea And Vomiting Oxycodone/Acetaminophen (Percocet 5/325) 1 tab PO Q6H PRN PRN Reason: Pain, Moderate (4-6) Sodium Chloride (Sodium Chloride Flush Syringe 10 Ml) 10 ml IV BID [facility] Sodium Chloride (Sodium Chloride Flush Syringe 10 Ml) 10 ml IV PRN PRN PRN Reason: LINE FLUSH Exam - Physical Exam Narrative exam: Gen. appearance: Patient lying in bed, no apparent distress HEENT: Normocephalic, atraumatic, pupils equally round and reactive to light, extraocular movement intact, and no sclericterus,. No JVD or thyromegaly or nodule,neck supple, no carotid bruit ,mucous membranes moist, no exudate or erythema Heart: S1, S2, regular rate and rhythm Lungs: Clear to auscultation bilaterally, breathing comfortable Abdomen: Positive bowel sounds, nontender, nondistended, no organomegaly Extremity: No edema, cyanosis, clubbing Skin: No rash, nodules, warm, dry Neuro: Oriented 3, cranial nerves II-12 intact, speech is fluent, motor and sensory intact - Constitutional Vitals: Temp Pulse Resp BP Pulse Ox 98.3 F 73 12 115/68 97 12/01/19 04:00 12/01/19 03:42 12/01/19 03:42 12/01/19 03:42 12/01/19 03:42 Results - Labs CBC & Chem 7: 11/30/19 22:53 11/30/19 22:53 Labs: Abnormal lab results 11/30/19 11/30/19 11/30/19 Range/Units 22:53 22:53 22:53 WBC 19.9 H (4.5-11.0) K/mm3 Hgb 15.3 H (11.8-15.2) gm/dl [place] % (Auto) 10.4 H (0.0-7.3) % [place] # 2.1 H (0.0-0.8) K/mm3 Seg Neutrophils % 75.0 H (40.0-70.0) % Seg Neutrophils # 14.9 H (1.8-7.7) K/mm3 VBG pH 7.442 H (7.320-7.420) Sodium 136 L (137-145) mmol/L Chloride 93.4 L (98-107) mmol/L BUN 7 L (9-20) mg/dL Glucose 123 H (75-100) mg/dL - Imaging and Cardiology Chest x-ray: report reviewed CT scan - chest: report reviewed Assessment and Plan Assessment Chest pain Check cardiac enzymes, obtain stress test start aspirin, percocet SIRS Start empiric antibiotic, Tamiflu Consult infectious disease check flu cultures, Follow cultures Hypertension Continue outpatient medications Diabetes Check fingersticks and start insulin sliding scale DVT prophylaxis
[2019-12-01 05:10] LABS: Basophils # (Auto) 0.1 K/mm3 (0.0-0.1); Basophils % (Auto) 0.6 % (0.0-1.8); Eosinophils % (Auto) 0.1 % (0.0-4.3); Hematocrit 41.3 % (35.5-45.6); Hemoglobin 14.1 gm/dl (11.8-15.2); Lymphocytes # (Auto) 2.3 K/mm3 (1.2-5.4); Lymphocytes % (Auto) 18.1 % (13.4-35.0); Mean Corpuscular HGB Conc 34 % (32-34); Mean Corpuscular Volume 93 fl (84-94); Monocytes # (Auto) 1.6 K/mm3 (0.0-0.8); Monocytes % (Auto) 13.1 % (0.0-7.3); Platelet Count 206 K/mm3 (140-440); Red Blood Count 4.42 M/mm3 (3.65-5.03); Red Cell Distribution Width 13.7 % (13.2-15.2)
[2019-12-01 05:28] LABS: Creatine Kinase MB 1.1 ng/mL (0.0-4.0)
[2019-12-01 05:31] LABS: BUN/Creatinine Ratio 9; Blood Urea Nitrogen 7 mg/dL (9-20); Calcium 8.7 mg/dL (8.4-10.2); Hemolysis Index 40
[2019-12-01] MEDS: OSELTAMIVIR 75 MG CAP PO SCH ×2 (06:11→11:29)
[2019-12-01] MEDS: INSULIN LISPRO 100 UNIT/ML SUB-Q SCH ×3 (06:11→18:11)
[2019-12-01] MEDS ORDERED: REGADENOSON 0.4 MG/5 ML INJ IV ONE (07:37)
[2019-12-01] MEDS ORDERED: IPRATROPIUM/ALBUTEROL SULFATE 3 ML AMPUL.NEB IH ONE ×2 (08:05→14:01)
[2019-12-01] MEDS: IPRATROPIUM/ALBUTEROL SULFATE 3 ML AMPUL.NEB IH SCH ×3 (08:08→20:13)
[2019-12-01] MEDS ORDERED: cefTRIAXone/NS 1 GM/50 ML 1 GM/50 ML BAG IV SCH (10:00)
[2019-12-01] MEDS ORDERED: ENOXAPARIN 40 MG/0.4 ML INJ SUB-Q ONE (10:58)
[2019-12-01] MEDS ORDERED: cefTRIAXone/NS 1 GM/50 ML 1 GM/50 ML BAG IV ONE (10:58)
[2019-12-01] MEDS ORDERED: ASPIRIN 81 MG TAB CHEW ONE (10:58)
[2019-12-01] MEDS: ENOXAPARIN 40 MG/0.4 ML INJ SUB-Q SCH (11:28)
[2019-12-01] MEDS: ASPIRIN 81 MG TAB CHEW PO SCH (11:28)
[2019-12-01 13:24] LABS: Bilirubin,Urine NEG (Negative); Blood,Urine SM (Negative); Color,Urine Yellow (Yellow); Mucus,Urine FEW /HPF; Protein,Urine <15 mg/dL mg/dL (Negative); Urobilinogen,Urine < 2.0 mg/dL (<2.0)
--- NOTE | 2019-12-01 14:21 | Consultation ---
History of Present Illness - Reason for Consult Consult date: 12/01/19 - History of Present Illness 54 yo M PMhx HTN, DM2, CAD presented tot he hospital complaining of chest pain which responded to nitroglycerin therapy. He also complained of generalized weakness, myalgias, and a cough productive of white sputum. Otherwise, he denies complaints, and is very concerned about the chest pain. Febrile in the ER to 102.2 with a white count of 12. Currently receiving ceftriaxone and Tamiflu. Blood cultures are pending. Influenza is negative. Imaging personally reviewed: Chest CT: no pneumonia or PE CXR: normal. Review of Systems: Bold if positive, otherwise negative General: fevers, chills, rigors HEENT: visual disturbance, diplopia, eye pain Respiratory: cough, sputum, hemoptysis, shortness of breath Cardiovascular: chest pain, syncope Gastrointestinal: nausea, vomiting, diarrhea, abdominal pain Genitourinary: dysuria, hematuria, flank pain Musculoskeletal: neck pain, back pain, joint pain, edema Neurologic: headaches, seizures Hematologic: easy bruising or bleeding Endocrine: night sweats, acute weight loss Skin: rash, jaundice, redness Psychiatric: suicidal, homicidal ideation Past History Past Medical History: CAD, hypertension Past Surgical History: No surgical history Social history: lives with family Family history: CAD, hypertension Medications and Allergies Allergies Allergy/AdvReac Type Severity Reaction Status Date / Time hydromorphone [From Dilaudid] Allergy Itching Verified 11/30/19 22:20 morphine Allergy Unknown Verified 11/30/19 22:20 Home Medications Medication Instructions Recorded Confirmed Last Taken Type amLODIPine 10 mg PO DAILY 07/01/19 12/01/19 Unknown History carvediloL [Coreg] 12.5 mg PO BID 07/01/19 12/01/19 Unknown History hydroCHLOROthiazide [HCTZ] 25 mg PO QDAY 07/01/19 12/01/19 Unknown History metFORMIN [Glucophage] 500 mg PO BID 07/01/19 12/01/19 Unknown History Aspirin [Aspirin BABY CHEW TAB] 81 mg PO QDAY #30 tab.chew 07/02/19 12/01/19 Unk nown Rx AtorvaSTATin [Lipitor] 40 mg PO QHS #30 tablet 07/02/19 12/01/19 Unknown Rx Folic Acid [Folvite] 1 mg PO QDAY #30 tablet 07/02/19 12/01/19 Unknown Rx Gabapentin 400 mg PO BID #60 capsule 07/02/19 12/01/19 Unknown Rx Thiamine [Vitamin B-1] 100 mg PO QDAY #30 tablet 07/02/19 12/01/19 Unknown Rx Active Meds: Active Medications Acetaminophen (Tylenol) 650 mg PO Q4H PRN PRN Reason: Pain MILD(1-3)/Fever >100.5/[facility]INOS Albuterol/Ipratropium (Duoneb *Not For Prn Use*) 1 ampul IH Q6HRT [facility] Last Admin: 12/01/19 14:02 Dose: 1 ampul Documented by: Aspirin (Baby Aspirin) 81 mg PO QDAY [facility] Last Admin: 12/01/19 11:28 Dose: 81 mg Documented by: Dextrose (D50w (25gm) Syringe) 50 ml IV Q30MIN PRN; Protocol PRN Reason: Hypoglycemia Enoxaparin Sodium (Enoxaparin) 40 mg SUB-Q QDAY [facility] Last Admin: 12/01/19 11:28 Dose: 40 mg Documented by: Ceftriaxone Sodium (Rocephin/Ns 1 Gm/50 Ml) 1 gm in 50 mls @ 100 mls/hr IV Q24HR [facility]; Protocol Last Admin: 12/01/19 11:28 Dose: 100 mls/hr Documented by: Insulin Human Lispro (Humalog) 0 unit SUB-Q Q6HR [facility]; Protocol Last Admin: 12/01/19 12:54 Dose: Not Given Documented by: Ondansetron HCl (Zofran) 4 mg IV Q8H PRN PRN Reason: Nausea And Vomiting Oseltamivir Phosphate (Tamiflu) 75 mg PO BID [facility] Stop: 12/05/19 10:01 Last Admin: 12/01/19 11:29 Dose: 75 mg Documented by: Oxycodone/Acetaminophen (Percocet 5/325) 1 tab PO Q6H PRN PRN Reason: Pain, Moderate (4-6) Sodium Chloride (Sodium Chloride Flush Syringe 10 Ml) 10 ml IV BID [facility] Last Admin: 12/01/19 11:29 Dose: 10 ml Documented by: Sodium Chloride (Sodium Chloride Flush Syringe 10 Ml) 10 ml IV PRN PRN PRN Reason: LINE FLUSH Physical Examination - Physical Exam Narrative exam: Constitutional: Alert, cooperative. No acute distress Head, Ears, Nose: Normocephalic, atraumatic. External ears, nose normal Eyes: Conjunctivae/corneas clear. No icterus. No ptosis. Neck: Supple, no meningeal signs Oral: dentition fair, no thrush Cardiovascular: S1, S2 normal. Respiratory: Good air entry, clear to auscultation bilaterally GI: Soft, non-tender; bowel sounds normal. No peritoneal signs. Musculoskeletal: No pedal edema, no cyanosis. Skin: No rash or abscess Hem/Lymphatic: No palpable cervical or supraclavicular nodes. No lymphangitis Psych: Mood ok. Affect normal Neurological: Awake, alert, oriented. No gross abnormality - Constitutional Vitals: Vital Signs Temp Pulse Resp BP Pulse Ox 98.2 F 86 18 122/80 96 12/01/19 06:00 12/01/19 14:02 12/01/19 14:02 12/01/19 11:34 12/01/19 11:34 Temperature -Last 24 Hours Temperature 98.2 F Temperature 98.3 F Temperature 102.2 F Results - Labs CBC & Chem 7: 12/01/19 04:48 12/01/19 04:48 Labs: Abnormal lab results 11/30/19 11/30/19 11/30/19 Range/Units 22:53 22:53 22:53 WBC 19.9 H (4.5-11.0) K/mm3 Hgb 15.3 H (11.8-15.2) gm/dl [place] % (Auto) 10.4 H (0.0-7.3) % [place] # 2.1 H (0.0-0.8) K/mm3 Seg Neutrophils % 75.0 H (40.0-70.0) % Seg Neutrophils # 14.9 H (1.8-7.7) K/mm3 VBG pH 7.442 H (7.320-7.420) Sodium 136 L (137-145) mmol/L Chloride 93.4 L (98-107) mmol/L BUN 7 L (9-20) mg/dL Glucose 123 H (75-100) mg/dL POC Glucose (70-105) Total Creatine Kinase (55-170) units/L 12/01/19 12/01/19 12/01/19 Range/Units 04:48 04:48 04:48 WBC 12.5 H (4.5-11.0) K/mm3 Hgb (11.8-15.2) gm/dl [place] % (Auto) 13.1 H (0.0-7.3) % [place] # 1.6 H (0.0-0.8) K/mm3 Seg Neutrophils % (40.0-70.0) % Seg Neutrophils # 8.5 H (1.8-7.7) K/mm3 VBG pH (7.320-7.420) Sodium (137-145) mmol/L Chloride (98-107) mmol/L BUN 7 L (9-20) mg/dL Glucose (75-100) mg/dL POC Glucose (70-105) Total Creatine Kinase 477 H (55-170) units/L 12/01/19 Range/Units 13:00 WBC (4.5-11.0) K/mm3 Hgb (11.8-15.2) gm/dl [place] % (Auto) (0.0-7.3) % [place] # (0.0-0.8) K/mm3 Seg Neutrophils % (40.0-70.0) % Seg Neutrophils # (1.8-7.7) K/mm3 VBG pH (7.320-7.420) Sodium (137-145) mmol/L Chloride (98-107) mmol/L BUN (9-20) mg/dL Glucose (75-100) mg/dL POC Glucose 240 H (70-105) Total Creatine Kinase (55-170) units/L Assessment and Plan Cultures: 11/30/2019 blood cultures - pending Influenza - negative A&P - 54 yo M PMHx HTN, CAD, CVA admitted with chest pain, found to be septic of unknown etiology. #SIRS possible sepsis - present with fevers and leukocytosis. Unclear etiology. Possibly viral URI. Will order procal. No evidence of pneumonia on CXR and CT. Influenza swab negative for flu. UA negative. Will stop Tamiflu, continue ceftriaxone for now. #Chest pain - per primary recommendations: - continue ceftriaxone 2g q24h - stopped Tamiflu - ordered procalcitonin for the AM. Winter Lerma MD [facility] M: [phone] O: [phone] F: [phone]
--- NOTE | 2019-12-01 16:17 | Progress Note ---
Assessment and Plan Assessment and plan: Patient is a 54-year-old man with a history of hypertension, diabetes, coronary artery disease, CVA with left-sided weakness comes emergency room with complaints of left substernal chest pain that started yesterday. He describes the pain as sharp, was constant until he took 2 nitroglycerin that relieved his pain. Intensity of the pain 5/10, no radiation. Denies nausea vomiting, shortness of breath, diaphoresis or palpitation. Admits to generalized weakness, body aches, cough productive of white phlegm Chest pain Check cardiac enzymes, obtain stress test start aspirin, percocet SIRS Start empiric antibiotic, Tamiflu Consult infectious disease check flu cultures, Follow cultures Hypertension Continue outpatient medications Diabetes Check fingersticks and start insulin sliding scale DVT prophylaxis History Interval history: Patient was seen and examined. Follow-up on current diagnosis. Overnight uneventful. Patient denies any chest pain, shortness of breath, nausea/vomiting or severe headaches. Imaging, nursing note, chart, labs and old chart reviewed. Discussed with patient. Hospitalist Physical - Physical exam Narrative exam: GEN: WDWN, NAD, Awake, Alert, Orientated HEENT: NCAT, EOMI, PERRL, OP Clear NECK: supple, no adenopathy, no thyromegaly, no JVD CVS/HEART: RRR, normal S1S2, pulses present bilaterally CHEST/LUNGS: CTA B, Symmetrical chest expansion, good air entry bilaterally GI/Abdomen: soft, NTND, good bowel sounds, no guarding or rebound /Bladder: no suprapubic tenderness, no CVA or paraspinal tenderness EXT/Skin: no c/c/e, no obvious rash MSK: FROM x 3 Neuro: CN 2-12 grossly intact, no new focal deficits, left hemiparesis Psych: calm - Constitutional Vitals: Temp Pulse Resp BP Pulse Ox 98.2 F 97 H 16 118/72 98 12/01/19 06:00 12/01/19 15:31 12/01/19 15:31 12/01/19 15:31 12/01/19 15:31 JAMES score - James Score Age > 65: (0) No Aspirin use within the Past 7 Days: (1) Yes 3 or more CAD Risk Factors: (1) Yes 2 or more Angina events in past 24 hrs: (1) Yes Known CAD with more than 50% Stenosis: (0) No Elevated Cardiac Markers: (0) No ST Deviation Greater than 0.5mm: (0) No JAMES Score: 3 Results - Labs CBC & Chem 7: 12/01/19 04:48 12/01/19 04:48 Labs: Laboratory Last Values WBC 12.5 K/mm3 (4.5-11.0) H 12/01/19 04:48 RBC 4.42 M/mm3 (3.65-5.03) 12/01/19 04:48 Hgb 14.1 gm/dl (11.8-15.2) 12/01/19 04:48 Hct 41.3 % (35.5-45.6) 12/01/19 04:48 MCV 93 fl (84-94) 12/01/19 04:48 MCH 32 pg (28-32) 12/01/19 04:48 MCHC 34 % (32-34) 12/01/19 04:48 RDW 13.7 % (13.2-15.2) 12/01/19 04:48 Plt Count 206 K/mm3 (140-440) 12/01/19 04:48 Lymph % (Auto) 18.1 % (13.4-35.0) 12/01/19 04:48 [place] % (Auto) 13.1 % (0.0-7.3) H 12/01/19 04:48 Eos % (Auto) 0.1 % (0.0-4.3) 12/01/19 04:48 Baso % (Auto) 0.6 % (0.0-1.8) 12/01/19 04:48 Lymph # 2.3 K/mm3 (1.2-5.4) 12/01/19 04:48 [place] # 1.6 K/mm3 (0.0-0.8) H 12/01/19 04:48 Eos # 0.0 K/mm3 (0.0-0.4) 12/01/19 04:48 Baso # 0.1 K/mm3 (0.0-0.1) 12/01/19 04:48 Seg Neutrophils % 68.1 % (40.0-70.0) 12/01/19 04:48 Seg Neutrophils # 8.5 K/mm3 (1.8-7.7) H 12/01/19 04:48 PT 13.6 Sec. (12.2-14.9) 11/30/19 22:53 INR 1.03 (0.87-1.13) 11/30/19 22:53 VBG pH 7.442 (7.320-7.420) H 11/30/19 22:53 Sodium 139 mmol/L (137-145) 12/01/19 04:48 Potassium 4.3 mmol/L (3.6-5.0) 12/01/19 04:48 Chloride 100.8 mmol/L (98-107) 12/01/19 04:48 Carbon Dioxide 23 mmol/L (22-30) 12/01/19 04:48 Anion Gap 20 mmol/L 12/01/19 04:48 BUN 7 mg/dL (9-20) L 12/01/19 04:48 Creatinine 0.8 mg/dL (0.8-1.5) 12/01/19 04:48 Estimated GFR > 60 ml/min 12/01/19 04:48 BUN/Creatinine Ratio 9 % 12/01/19 04:48 Glucose 97 mg/dL (75-100) 12/01/19 04:48 POC Glucose 240 (70-105) H 12/01/19 13:00 Lactic Acid 0.70 mmol/L (0.7-2.0) 12/01/19 01:53 Calcium 8.7 mg/dL (8.4-10.2) 12/01/19 04:48 Total Bilirubin 0.50 mg/dL (0.1-1.2) 11/30/19 22:53 AST 16 units/L (5-40) 11/30/19 22:53 ALT 16 units/L (7-56) 11/30/19 22:53 Alkaline Phosphatase 83 units/L (35-129) 11/30/19 22:53 Total Creatine Kinase 477 units/L (55-170) H 12/01/19 04:48 CK-MB (CK-2) 1.1 ng/mL (0.0-4.0) 12/01/19 04:48 CK-MB (CK-2) Rel Index 0.2 (0-4) 12/01/19 04:48 Troponin T < 0.010 ng/mL (0.00-0.029) 12/01/19 04:48 Total Protein 8.0 g/dL (6.3-8.2) 11/30/19 22:53 Albumin 4.3 g/dL (3.9-5) 11/30/19 22:53 Albumin/Globulin Ratio 1.2 % 11/30/19 22:53 Urine Color Yellow (Yellow) 12/01/19 12:45 Urine Turbidity Clear (Clear) 12/01/19 12:45 Urine pH 5.0 (5.0-7.0) 12/01/19 12:45 Ur Specific [place] 1.024 (1.003-1.030) 12/01/19 12:45 Urine Protein <15 mg/dl mg/dL (Negative) 12/01/19 12:45 Urine Glucose (UA) >=500 mg/dL (Negative) 12/01/19 12:45 Urine Ketones 80 mg/dL (Negative) 12/01/19 12:45 Urine Blood Sm (Negative) 12/01/19 12:45 Urine Nitrite Neg (Negative) 12/01/19 12:45 Urine Bilirubin Neg (Negative) 12/01/19 12:45 Urine Urobilinogen < 2.0 mg/dL (<2.0) 12/01/19 12:45 Ur Leukocyte Esterase Neg (Negative) 12/01/19 12:45 Urine WBC (Auto) 1.0 /HPF (0.0-6.0) 12/01/19 12:45 Urine RBC (Auto) 1.0 /HPF (0.0-6.0) 12/01/19 12:45 U Epithel Cells (Auto) < 1.0 /HPF (0-13.0) 12/01/19 12:45 Urine Mucus Few /HPF 12/01/19 12:45 Influenza A (Rapid) Negative (Negative) 11/30/19 Unknown Influenza B (Rapid) Negative (Negative) 11/30/19 Unknown Group A Strep Rapid Negative (Negative) 11/30/19 Unknown Active Medications - Current Medications Current Medications: Generic Name Dose Route Start Last Admin Trade Name Freq PRN Reason Stop Dose Admin Acetaminophen 650 mg 12/01/19 04:16 Tylenol PO Q4H PRN Pain MILD(1-3)/Fever >100.5/MONTESINOS Albuterol/Ipratropium 1 ampul 12/01/19 08:00 12/01/19 14:02 Duoneb *Not For Prn Use* IH 1 ampul Q6HRT MAREK Administration Aspirin 81 mg 12/01/19 10:00 12/01/19 11:28 Baby Aspirin PO 81 mg QDAY MAREK Administration Dextrose 50 ml 12/01/19 04:16 D50w (25gm) Syringe IV Q30MIN PRN Hypoglycemia Protocol Enoxaparin Sodium 40 mg 12/01/19 10:00 12/01/19 11:28 Enoxaparin SUB-Q 40 mg QDAY MAREK Administration Ceftriaxone Sodium 2 gm in 100 mls @ 200 mls/hr 12/02/19 10:00 Rocephin/Ns 2 Gm/100 Ml IV Q24HR [facility] Protocol Insulin Human Lispro 0 unit 12/01/19 06:00 12/01/19 12:54 Humalog SUB-Q Not Given Q6HR [facility] Protocol Ondansetron HCl 4 mg 12/01/19 04:16 Zofran IV Q8H PRN Nausea And Vomiting Oseltamivir Phosphate 75 mg 12/01/19 04:35 12/01/19 11:29 Tamiflu PO 12/05/19 10:01 75 mg BID MAREK Administration Oxycodone/Acetaminophen 1 tab 12/01/19 04:16 Percocet 5/325 PO Q6H PRN Pain, Moderate (4-6) Sodium Chloride 10 ml 12/01/19 10:00 12/01/19 11:29 Sodium Chloride Flush Syringe 10 Ml IV 10 ml BID MAREK Administration Sodium Chloride 10 ml 12/01/19 04:16 Sodium Chloride Flush Syringe 10 Ml IV PRN PRN LINE FLUSH
[2019-12-01] MEDS ORDERED: INSULIN LISPRO 100 UNIT/ML SUB-Q ONE (18:16)
[2019-12-01] MEDS: oxyCODONE /ACETAMINOPHEN 5-325MG TAB PO PRN (22:22)
[2019-12-02] MEDS: INSULIN LISPRO 100 UNIT/ML SUB-Q SCH ×4 (01:32→17:59)
[2019-12-02] MEDS: IPRATROPIUM/ALBUTEROL SULFATE 3 ML AMPUL.NEB IH SCH ×3 (08:03→20:16)
[2019-12-02] MEDS: ASPIRIN 81 MG TAB CHEW PO SCH (09:56)
[2019-12-02] MEDS: ENOXAPARIN 40 MG/0.4 ML INJ SUB-Q SCH (09:56)
[2019-12-02] MEDS: cefTRIAXone/NS 2 GM/100 ML 2 GM/100 ML BAG IV SCH (10:02)
[2019-12-02] MEDS: oxyCODONE /ACETAMINOPHEN 5-325MG TAB PO PRN ×2 (11:03→22:34)
[2019-12-02 11:38] LABS: Hematocrit 44.8 % (35.5-45.6); Mean Corpuscular HGB Conc 34 % (32-34); Mean Corpuscular Volume 94 fl (84-94); Platelet Count 210 K/mm3 (140-440); Red Blood Count 4.78 M/mm3 (3.65-5.03); Red Cell Distribution Width 13.7 % (13.2-15.2)
--- NOTE | 2019-12-02 14:02 | Progress Note ---
Assessment and Plan Cultures: 11/30/2019 blood cultures - pending Influenza - negative A&P - 54 yo M PMHx HTN, CAD, CVA admitted with chest pain, found to be septic of unknown etiology. #SIRS possible sepsis - present with fevers and leukocytosis. Unclear etiology. Possibly viral URI. Will order procal. No evidence of pneumonia on CXR and CT. Influenza swab negative for flu. UA negative. Will stop Tamiflu, continue ceftriaxone for now. #Chest pain - per primary recommendations: - continue ceftriaxone 2g q24h - procalcitonin only mildly elevated, doubt significant bacterial infection at this time. - follow up remaining cultures. Winter Lerma MD [facility] ([facility]) M: [phone] O: [phone] F: [phone] Subjective Date of service: 12/02/19 Interval history: Chest pain improved. Afebrile, whtie count still elevated to 16. Objective - Exam Narrative Exam: Constitutional: Alert, cooperative. No acute distress Head, Ears, Nose: Normocephalic, atraumatic. External ears, nose normal Eyes: Conjunctivae/corneas clear. No icterus. No ptosis. Neck: Supple, no meningeal signs Oral: dentition fair, no thrush Cardiovascular: S1, S2 normal. Respiratory: Good air entry, clear to auscultation bilaterally GI: Soft, non-tender; bowel sounds normal. No peritoneal signs. Musculoskeletal: No pedal edema, no cyanosis. Skin: No rash or abscess Hem/Lymphatic: No palpable cervical or supraclavicular nodes. No lymphangitis Psych: Mood ok. Affect normal Neurological: Awake, alert, oriented. No gross abnormality - Constitutional Vitals: Vital Signs Temp Pulse Resp BP Pulse Ox 97.5 F L 94 H 19 151/87 98 12/02/19 11:59 12/02/19 13:14 12/02/19 13:14 12/02/19 11:59 12/02/19 13:14 Temperature -Last 24 Hours Temperature 97.5 F Temperature 97.9 F Temperature 97.7 F Temperature 97.9 F Temperature 97.9 F - Labs CBC & Chem 7: 12/02/19 10:22 12/01/19 04:48 Labs: Abnormal lab results 12/01/19 12/01/1912/02/20 Range/Units 18:20 20:47 05:42 WBC (4.5-11.0) K/mm3 POC Glucose 444 H 387 H 122 H (70-105) 12/02/19 12/02/19 Range/Units 10:22 12:34 WBC 15.9 H (4.5-11.0) K/mm3 POC Glucose 158 H (70-105)
[2019-12-02] MEDS ORDERED: MELATONIN 5 MG TAB PO PRN (18:20)
--- NOTE | 2019-12-02 18:29 | Progress Note ---
Assessment and Plan Assessment and plan: Patient is a 54-year-old man with a history of hypertension, diabetes, coronary artery disease, CVA with left-sided weakness comes emergency room with complaints of left substernal chest pain that started yesterday. He describes the pain as sharp, was constant until he took 2 nitroglycerin that relieved his pain. Intensity of the pain 5/10, no radiation. Denies nausea vomiting, shortness of breath, diaphoresis or palpitation. Admits to generalized weakness, body aches, cough productive of white phlegm * CTA chest IMPRESSION: No evidence of acute PTE or pneumonia. Chest pain, most likely costochondritis, -w/ negative stress test -treat with pain medications SIRS, infectious related, poa -I don't know the source but the Rocephin is helping WBC from 19.9 to 15.9 -Start empiric antibiotic, Tamiflu but stopped by ID -Consulted infectious disease, input noted -check flu cultures, Follow cultures Hypertension -Continue outpatient medications Diabetes mellitus -Check fingersticks and start insulin sliding scale H/o CVA with left hemiparesis Insomnia: give Melatonin DVT prophylaxis: on sq lovenox History Interval history: Patient was seen and examined. Follow-up on current diagnosis of SIRS. Overnight uneventful. Patient denies any chest pain, shortness of breath, nausea/vomiting or severe headaches. Imaging, nursing note, chart, labs and old chart reviewed. Discussed with patient. Hospitalist Physical - Physical exam Narrative exam: GEN: WDWN, NAD, Awake, Alert, Orientated HEENT: NCAT, EOMI, PERRL, OP Clear NECK: supple, no adenopathy, no thyromegaly, no JVD CVS/HEART: RRR, normal S1S2, pulses present bilaterally CHEST/LUNGS: CTA B, Symmetrical chest expansion, good air entry bilaterally GI/Abdomen: soft, NTND, good bowel sounds, no guarding or rebound /Bladder: no suprapubic tenderness, no CVA or paraspinal tenderness EXT/Skin: no c/c/e, no obvious rash MSK: FROM x 3 Neuro: CN 2-12 grossly intact, no new focal deficits, left hemiparesis Psych: calm - Constitutional Vitals: Temp Pulse Resp BP Pulse Ox 97.5 F L 92 H 18 151/87 98 12/02/19 11:59 12/02/19 14:00 12/02/19 14:00 12/02/19 11:59 12/02/19 13:14 JAMES score - James Score Age > 65: (0) No Aspirin use within the Past 7 Days: (1) Yes 3 or more CAD Risk Factors: (1) Yes 2 or more Angina events in past 24 hrs: (1) Yes Known CAD with more than 50% Stenosis: (0) No Elevated Cardiac Markers: (0) No ST Deviation Greater than 0.5mm: (0) No JAMES Score: 3 Results - Labs CBC & Chem 7: 12/02/19 10:22 12/01/19 04:48 Labs: Laboratory Last Values WBC 15.9 K/mm3 (4.5-11.0) H 12/02/19 10:22 RBC 4.78 M/mm3 (3.65-5.03) 12/02/19 10:22 Hgb 15.0 gm/dl (11.8-15.2) 12/02/19 10:22 Hct 44.8 % (35.5-45.6) 12/02/19 10:22 MCV 94 fl (84-94) 12/02/19 10:22 MCH 31 pg (28-32) 12/02/19 10:22 MCHC 34 % (32-34) 12/02/19 10:22 RDW 13.7 % (13.2-15.2) 12/02/19 10:22 Plt Count 210 K/mm3 (140-440) 12/02/19 10:22 Lymph % (Auto) 18.1 % (13.4-35.0) 12/01/19 04:48 [place] % (Auto) 13.1 % (0.0-7.3) H 12/01/19 04:48 Eos % (Auto) 0.1 % (0.0-4.3) 12/01/19 04:48 Baso % (Auto) 0.6 % (0.0-1.8) 12/01/19 04:48 Lymph # 2.3 K/mm3 (1.2-5.4) 12/01/19 04:48 [place] # 1.6 K/mm3 (0.0-0.8) H 12/01/19 04:48 Eos # 0.0 K/mm3 (0.0-0.4) 12/01/19 04:48 Baso # 0.1 K/mm3 (0.0-0.1) 12/01/19 04:48 Seg Neutrophils % 68.1 % (40.0-70.0) 12/01/19 04:48 Seg Neutrophils # 8.5 K/mm3 (1.8-7.7) H 12/01/19 04:48 PT 13.6 Sec. (12.2-14.9) 11/30/19 22:53 INR 1.03 (0.87-1.13) 11/30/19 22:53 VBG pH 7.442 (7.320-7.420) H 11/30/19 22:53 Sodium 139 mmol/L (137-145) 12/01/19 04:48 Potassium 4.3 mmol/L (3.6-5.0) 12/01/19 04:48 Chloride 100.8 mmol/L (98-107) 12/01/19 04:48 Carbon Dioxide 23 mmol/L (22-30) 12/01/19 04:48 Anion Gap 20 mmol/L 12/01/19 04:48 BUN 7 mg/dL (9-20) L 12/01/19 04:48 Creatinine 0.8 mg/dL (0.8-1.5) 12/01/19 04:48 Estimated GFR > 60 ml/min 12/01/19 04:48 BUN/Creatinine Ratio 9 % 12/01/19 04:48 Glucose 97 mg/dL (75-100) 12/01/19 04:48 POC Glucose 222 (70-105) H 12/02/19 17:41 Lactic Acid 0.70 mmol/L (0.7-2.0) 12/01/19 01:53 Calcium 8.7 mg/dL (8.4-10.2) 12/01/19 04:48 Total Bilirubin 0.50 mg/dL (0.1-1.2) 11/30/19 22:53 AST 16 units/L (5-40) 11/30/19 22:53 ALT 16 units/L (7-56) 11/30/19 22:53 Alkaline Phosphatase 83 units/L (35-129) 11/30/19 22:53 Total Creatine Kinase 477 units/L (55-170) H 12/01/19 04:48 CK-MB (CK-2) 1.1 ng/mL (0.0-4.0) 12/01/19 04:48 CK-MB (CK-2) Rel Index 0.2 (0-4) 12/01/19 04:48 Troponin T < 0.010 ng/mL (0.00-0.029) 12/01/19 04:48 Total Protein 8.0 g/dL (6.3-8.2) 11/30/19 22:53 Albumin 4.3 g/dL (3.9-5) 11/30/19 22:53 Albumin/Globulin Ratio 1.2 % 11/30/19 22:53 Procalcitonin 0.38 ng/mL (<0.15) 12/02/19 05:50 Urine Color Yellow (Yellow) 12/01/19 12:45 Urine Turbidity Clear (Clear) 12/01/19 12:45 Urine pH 5.0 (5.0-7.0) 12/01/19 12:45 Ur Specific [place] 1.024 (1.003-1.030) 12/01/19 12:45 Urine Protein <15 mg/dl mg/dL (Negative) 12/01/19 12:45 Urine Glucose (UA) >=500 mg/dL (Negative) 12/01/19 12:45 Urine Ketones 80 mg/dL (Negative) 12/01/19 12:45 Urine Blood Sm (Negative) 12/01/19 12:45 Urine Nitrite Neg (Negative) 12/01/19 12:45 Urine Bilirubin Neg (Negative) 12/01/19 12:45 Urine Urobilinogen < 2.0 mg/dL (<2.0) 12/01/19 12:45 Ur Leukocyte Esterase Neg (Negative) 12/01/19 12:45 Urine WBC (Auto) 1.0 /HPF (0.0-6.0) 12/01/19 12:45 Urine RBC (Auto) 1.0 /HPF (0.0-6.0) 12/01/19 12:45 U Epithel Cells (Auto) < 1.0 /HPF (0-13.0) 12/01/19 12:45 Urine Mucus Few /HPF 12/01/19 12:45 Influenza A (Rapid) Negative (Negative) 11/30/19 Unknown Influenza B (Rapid) Negative (Negative) 11/30/19 Unknown Group A Strep Rapid Negative (Negative) 11/30/19 Unknown Active Medications - Current Medications Current Medications: Generic Name Dose Route Start Last Admin Trade Name Freq PRN Reason Stop Dose Admin Acetaminophen 650 mg 12/01/19 04:16 Tylenol PO Q4H PRN Pain MILD(1-3)/Fever >100.5/MONTESINOS Albuterol/Ipratropium 1 ampul 12/02/19 08:00 12/02/19 14:51 Duoneb *Not For Prn Use* IH 1 ampul TIDRT MAREK Administration Aspirin 81 mg 12/01/19 10:00 12/02/19 09:56 Baby Aspirin PO 81 mg QDAY MAREK Administration Dextrose 50 ml 12/01/19 04:16 D50w (25gm) Syringe IV Q30MIN PRN Hypoglycemia Protocol Enoxaparin Sodium 40 mg 12/01/19 10:00 12/02/19 09:56 Enoxaparin SUB-Q 40 mg QDAY MAREK Administration Ceftriaxone Sodium 2 gm in 100 mls @ 200 mls/hr 12/02/19 10:00 12/02/19 10:02 Rocephin/Ns 2 Gm/100 Ml IV 200 mls/hr Q24HR MAREK Administration Protocol Insulin Human Lispro 0 unit 12/01/19 06:00 12/02/19 17:59 Humalog SUB-Q 4 unit Q6HR MAREK Administration Protocol Melatonin 10 mg 12/02/19 18:20 Melatonin PO QHS PRN Sleep Ondansetron HCl 4 mg 12/01/19 04:16 Zofran IV Q8H PRN Nausea And Vomiting Oxycodone/Acetaminophen 1 tab 12/01/19 04:16 12/02/19 11:03 Percocet 5/325 PO 1 tab Q6H PRN Administration Pain, Moderate (4-6) Sodium Chloride 10 ml 12/01/19 10:00 12/02/19 10:03 Sodium Chloride Flush Syringe 10 Ml IV 10 ml BID MAREK Administration Sodium Chloride 10 ml 12/01/19 04:16 Sodium Chloride Flush Syringe 10 Ml IV PRN PRN LINE FLUSH
[2019-12-03] MEDS: INSULIN LISPRO 100 UNIT/ML SUB-Q SCH ×3 (01:30→12:28)
[2019-12-03 06:41] LABS: Hematocrit 39.3 % (35.5-45.6); Hemoglobin 13.4 gm/dl (11.8-15.2); Mean Corpuscular HGB Conc 34 % (32-34); Mean Corpuscular Volume 94 fl (84-94); Platelet Count 249 K/mm3 (140-440); Red Blood Count 4.19 M/mm3 (3.65-5.03); Red Cell Distribution Width 13.3 % (13.2-15.2)
[2019-12-03 06:57] LABS: BUN/Creatinine Ratio 11; Blood Urea Nitrogen 8 mg/dL (9-20); Calcium 9.1 mg/dL (8.4-10.2); Hemolysis Index 8
[2019-12-03 07:39] VITALS: BP 126/90
[2019-12-03] MEDS: IPRATROPIUM/ALBUTEROL SULFATE 3 ML AMPUL.NEB IH SCH (08:27)
[2019-12-03] MEDS: oxyCODONE /ACETAMINOPHEN 5-325MG TAB PO PRN (10:14)
[2019-12-03] MEDS: ASPIRIN 81 MG TAB CHEW PO SCH (10:14)
[2019-12-03] MEDS: ENOXAPARIN 40 MG/0.4 ML INJ SUB-Q SCH (10:14)
[2019-12-03] MEDS: cefTRIAXone/NS 2 GM/100 ML 2 GM/100 ML BAG IV SCH (10:18)
--- NOTE | 2019-12-03 12:05 | Discharge Summary ---
Providers - Providers Date of Admission: 12/01/19 10:45 Date of discharge: 12/03/19 Attending physician: SANJEEV BALDERAS 12/01/19 04:36 Consult to Physician [CONS] Routine Comment: Consulting Provider: KAYA SHEPPARD Physician Instructions: Reason For Exam: SIRS Primary care physician: BOOSTER PUMP OILER Hospitalization Condition: Stable Hospital course: Patient is a 54-year-old man with a history of hypertension, diabetes, coronary artery disease, CVA with left-sided weakness comes emergency room with complaints of left substernal chest pain that started yesterday. He describes the pain as sharp, was constant until he took 2 nitroglycerin that relieved his pain. Intensity of the pain 5/10, no radiation. Denies nausea vomiting, shortness of breath, diaphoresis or palpitation. Admits to generalized weakness, body aches, cough productive of white phlegm * CTA chest IMPRESSION: No evidence of acute PTE or pneumonia. Discharge Diagnoses: Chest pain, most likely costochondritis, -w/ negative stress test -treat with pain medications SIRS, infectious related, poa -I don't know the source but the Rocephin is helping WBC from 19.9 to to 6.9, treat as a bronchitis -Started empiric antibiotic, Tamiflu but stopped by ID -Consulted infectious disease, input noted -check flu cultures, Follow cultures Hypertension-Continue outpatient medications Diabetes mellitus -Check fingersticks and start insulin sliding scale H/o CVA with left hemiparesis Insomnia: give Melatonin h/o Anxiety: he is requesting Xanax, he takes his friends and it helps, he doesn't know the dose he has been taking, after school counselor against this practice tobacco dependency: after school counselor on stopping, he will accept nicotine patch Disposition: DC-01 TO HOME OR SELFCARE Time spent for discharge: 35 minutes Core Measure Documentation - Palliative Care Palliative Care/ Comfort Measures: Not Applicable - Core Measures Any of the following diagnoses?: none - VTE Discharge Requirements Deep Vein Thrombosis/Pulmonary Embolism Present on Admission: No Has pt received <5 days of overlap therapy or INR<2.0: No Anticoagulant overlap therapy prescribed at discharge: No Contraindication No Overlap Therapy order at DC: Not Indicated Exam - Physical Exam Narrative exam: GEN: WDWN, NAD, Awake, Alert, Orientated HEENT: NCAT, EOMI, PERRL, OP Clear NECK: supple, no adenopathy, no thyromegaly, no JVD CVS/HEART: RRR, normal S1S2, pulses present bilaterally CHEST/LUNGS: CTA B, Symmetrical chest expansion, good air entry bilaterally GI/Abdomen: soft, NTND, good bowel sounds, no guarding or rebound /Bladder: no suprapubic tenderness, no CVA or paraspinal tenderness EXT/Skin: no c/c/e, no obvious rash MSK: FROM x 3 Neuro: CN 2-12 grossly intact, no new focal deficits, left hemiparesis Psych: calm - Constitutional Vitals: Temp Pulse Resp BP Pulse Ox 97.9 F 69 18 126/90 100 12/03/19 07:38 12/03/19 08:00 12/03/19 08:00 12/03/19 07:38 12/03/19 08:29 Plan Activity: other (no strenous activity) Diet: low salt, diabetic Special Instructions: record daily BP diary, record blood sugar diary, smoking cessation Follow up with: PRIMARY CARE, [Primary Care Provider] - 3-5 Days KAYA SHEPPARD MD [Staff Physician] - 10 Days Prescriptions: AtorvaSTATin [Lipitor] 40 mg PO QHS #30 tablet amLODIPine 10 mg PO DAILY 2 Days #30 tab Aspirin [Aspirin BABY CHEW TAB] 81 mg PO QDAY #30 tab.chew cefUROXime [Ceftin] 2 tab PO Q12H #20 tablet Folic Acid [Folvite] 1 mg PO QDAY #30 tablet metFORMIN [Glucophage] 500 mg PO BID #60 tab oxyCODONE /ACETAMINOPHEN [Percocet 5/325 mg] 1 tab PO Q6H PRN #16 tablet PRN Reason: Pain , Severe (7-10) Albuterol INH(or & Nicu Only) [ProAir HFA Inhaler] 1 puff IH Q4H PRN #8.5 gram PRN Reason: Wheezing ALBUTEROL NEB's [Proventil 0.083% NEBS] 2.5 mg IH TID PRN #30 neb PRN Reason: Shortness Of Breath Thiamine [Vitamin B-1] 100 mg PO QDAY #30 tablet ALPRAZolam [Xanax TAB] 0.25 mg PO BID PRN #14 tab PRN Reason: Anxiety
--- NOTE | 2019-12-03 12:14 | Progress Note ---
Assessment and Plan Cultures: 11/30/2019 blood cultures - pending Influenza - negative A&P - 54 yo M PMHx HTN, CAD, CVA admitted with chest pain, found to be septic of unknown etiology. #SIRS possible sepsis - present with fevers and leukocytosis. Unclear etiology. Possibly viral URI. Will order procal. No evidence of pneumonia on CXR and CT. Influenza swab negative for flu. UA negative. Will stop Tamiflu. Most likely a viral infection, would not continue antibiotics. #Chest pain - per primary recommendations: - stopped ceftriaxone - procalcitonin only mildly elevated, doubt significant bacterial infection at this time. - follow up remaining cultures. - ok for discharge fro infectious disease standpoint wihtout antibiotics. Thank you for the consult, infectious disease will sign off. Winter Lerma MD [facility] ([facility]) M: [phone] O: [phone] F: [phone] Subjective Date of service: 12/03/19 Interval history: Chest pain improved. Afebrile, white count now normal. Objective - Exam Narrative Exam: Constitutional: Alert, cooperative. No acute distress Head, Ears, Nose: Normocephalic, atraumatic. External ears, nose normal Eyes: Conjunctivae/corneas clear. No icterus. No ptosis. Neck: Supple, no meningeal signs Oral: dentition fair, no thrush Cardiovascular: S1, S2 normal. Respiratory: Good air entry, clear to auscultation bilaterally GI: Soft, non-tender; bowel sounds normal. No peritoneal signs. Musculoskeletal: No pedal edema, no cyanosis. Skin: No rash or abscess Hem/Lymphatic: No palpable cervical or supraclavicular nodes. No lymphangitis Psych: Mood ok. Affect normal Neurological: Awake, alert, oriented. No gross abnormality - Constitutional Vitals: Vital Signs Temp Pulse Resp BP Pulse Ox 97.9 F 69 18 126/90 100 12/03/19 07:38 12/03/19 08:00 12/03/19 08:00 12/03/19 07:38 12/03/19 08:29 Temperature -Last 24 Hours Temperature 97.9 F Temperature 97.7 F Temperature 98.3 F Temperature 98.5 F - Labs CBC & Chem 7: 12/03/19 05:36 12/03/19 05:36 Labs: Abnormal lab results 12/02/19 12/02/19 12/02/19 Range/Units 12:34 17:41 23:30 BUN (9-20) mg/dL Creatinine (0.8-1.5) mg/dL Glucose (75-100) mg/dL POC Glucose 158 H 222 H 162 H (70-105) 12/03/19 12/03/19 Range/Units 05:36 12:05 BUN 8 L (9-20) mg/dL Creatinine 0.7 L (0.8-1.5) mg/dL Glucose 105 H (75-100) mg/dL POC Glucose 184 H (70-105)
== END 2019-12-03 13:22 | disposition home or self-care (01) | DRG 206 ==
LOC: ED 22:16 → 4A 12-01 04:15 → OBSVTOIN 12-01 10:45 → 4A 12-01 18:15
PROVIDERS: ADMIT Internal Medicine; ATTEND Internal Medicine
DX: M94.0 Chondrocostal junction syndrome [Tietze] (principal); R65.10 Systemic inflammatory response syndrome (SIRS) of non-infectious origin without acute organ dysfunction; I69.954 Hemiplegia and hemiparesis following unspecified cerebrovascular disease affecting left non-dominant side; J44.1 Chronic obstructive pulmonary disease with (acute) exacerbation; I10 Essential (primary) hypertension; E11.9 Type 2 diabetes mellitus without complications; I25.10 Atherosclerotic heart disease of native coronary artery without angina pectoris; F41.9 Anxiety disorder, unspecified; E78.5 Hyperlipidemia, unspecified; M19.90 Unspecified osteoarthritis, unspecified site; F17.210 Nicotine dependence, cigarettes, uncomplicated; G43.909 Migraine, unspecified, not intractable, without status migrainosus; D72.829 Elevated white blood cell count, unspecified; G47.00 Insomnia, unspecified; R00.0 Tachycardia, unspecified; R50.9 Fever, unspecified; Z88.5 Allergy status to narcotic agent; I25.2 Old myocardial infarction; Z71.6 Tobacco abuse counseling; Z82.49 Family history of ischemic heart disease and other diseases of the circulatory system
CPT/HCPCS: 36415; 71045; 71275; 78452; 80048; 80053; 81001; 82140; 82550; 82553; 82805; 82962; 84145; 84484; 85025; 85027; 85610; 87040; 87086; 87116; 87400; 87430; 93005; 93010; 93017; 94640; 94760; G0378; A9502; J0692; J0696; J1650; J1815; J2785; J2930; J7030; J7040; Q9967

== ENCOUNTER 2020-07-24 14:47 | Emergency (ER) | payer MEDICAID ==
[2020-07-24] MEDS ORDERED: ACETAMINOPHEN 325 MG TAB PO ONE (15:13)
[2020-07-24] MEDS ORDERED: ACETAMINOPHEN 325 MG TAB ONE (15:15)
--- NOTE | 2020-07-24 15:53 | Emergency Department Report ---
HPI - General Chief Complaint: Fever Time Seen by Provider: 07/24/20 15:35 - HPI HPI: Room 37 The patient is a 55-year-old male present with a chief complaint of "feeling sick." Patient states for the past 4 days he has had a headache body aches and felt cold. Patient denies cough or fever at home but was found to be febrile in the ED. Patient denies rhinorrhea or sneezing. Patient states he developed some diarrhea yesterday whenever he drinks water. Patient denies any known sick contacts including COVID-19 patients ED Past Medical Hx - Past Medical History Previous Medical History?: Yes Hx Hypertension: Yes Hx CVA: Yes (left side weakness) Hx Heart Attack/AMI: Yes Hx Congestive Heart Failure: Yes Hx Diabetes: Yes Hx Arthritis: Yes Hx Headaches / Migraines: Yes Hx Seizures: Yes Hx Asthma: Yes Additional medical history: TIA /cva - Surgical History Past Surgical History?: Yes Additional Surgical History: bilateral arm surgery - Family History Family history: no significant - Social History Smoking Status: Former Smoker (None x1 week) Substance Use Type: None (Denies illicit drug use) - Medications Home Medications: Home Medications Medication Instructions Recorded Confirmed Last Taken Type ALBUTEROL NEB's [Proventil 0.083% 2.5 mg IH TID PRN #30 neb 12/03/19 05/04/20 05/02/20 Rx NEBS] ALPRAZolam [Xanax TAB] 0.25 mg PO BID PRN #14 tab 12/03/19 05/04/20 Unknown Rx Albuterol Mdi (or & Nicu Only) 1 puff IH Q4H PRN #8.5 gram 12/03/19 05/04/20 05/04/20 Rx [ProAir HFA Inhaler] Aspirin [Aspirin BABY CHEW TAB] 81 mg PO QDAY #30 tab.chew 12/03/19 05/04/20 05/03/20 Rx AtorvaSTATin [Lipitor] 40 mg PO QHS #30 tablet 12/03/19 05/04/20 05/01/20 Rx Folic Acid [Folvite] 1 mg PO QDAY #30 tablet 12/03/19 05/04/20 05/03/20 Rx Thiamine [Vitamin B-1] 100 mg PO QDAY #30 tablet 12/03/19 05/04/20 05/03/20 Rx amLODIPine 10 mg PO DAILY 2 Days #30 tab 12/03/19 05/04/20 05/03/20 Rx metFORMIN [Glucophage] 500 mg PO BID #60 tab 12/03/19 05/04/20 05/03/20 Rx ALBUTEROL NEB's [Proventil 0.083% 2.5 mg IH Q4HRT PRN nebu 05/06/20 Unknown Rx NEBS] Famotidine [Pepcid] 20 mg PO BID tablet 05/06/20 Unknown Rx levETIRAcetam [Keppra TAB] 500 mg PO BID #60 tablet 05/06/20 Unknown Rx Cyclobenzaprine [Flexeril] 10 mg PO TID PRN #10 tablet 07/24/20 Unknown Rx Ibuprofen [Motrin 800 MG tab] 800 mg PO Q8HR PRN #20 tablet 07/24/20 Unknown Rx levoFLOXacin [Levaquin TAB] 500 mg PO QDAY #10 tablet 07/24/20 Unknown Rx ED Review of Systems ROS: Stated complaint: WEAKNESS Other details as noted in HPI Constitutional: chills ENT: denies: congestion Respiratory: denies: cough Cardiovascular: denies: chest pain Gastrointestinal: diarrhea. denies: abdominal pain, nausea, vomiting Musculoskeletal: denies: back pain Neurological: headache Physical Exam - Physical Exam Vital Signs: Vital Signs 07/24/20 15:07 Temperature 103.1 F H Pulse Rate 88 Respiratory 22 Rate Blood Pressure 143/74 O2 Sat by Pulse 98 Oximetry Physical Exam: GENERAL: The patient is well-developed well-nourished male lying on stretcher not appearing to be in acute distress. [] HEENT: Normocephalic. Atraumatic. Extraocular motions are intact. Patient has moist mucous membranes. NECK: Supple. No meningitic signs are noted. There is no nuchal rigidity CHEST/LUNGS: Clear to auscultation. There is no respiratory distress noted. HEART/CARDIOVASCULAR: Regular. There is no tachycardia. There is no gallop rub or murmur. ABDOMEN: Abdomen is soft, nontender. Patient has normal bowel sounds. There is no abdominal distention. SKIN: There is no rash. There is no edema. There is no diaphoresis. NEURO: The patient is awake, alert, and oriented. The patient is cooperative. The patient has no focal neurologic deficits. The patient has normal speech MUSCULOSKELETAL: There is no evidence of acute injury. ED Course Vital Signs 07/24/20 15:07 Temperature 103.1 F H Pulse Rate 88 Respiratory 22 Rate Blood Pressure 143/74 O2 Sat by Pulse 98 Oximetry ED Medical Decision Making - Lab Data Result diagrams: 07/24/20 15:53 07/24/20 15:53 - Radiology Data Radiology results: report reviewed (Chest x-ray), image reviewed (Chest x-ray) interpreted by me: Chest x-ray-right hilar fullness. No pneumothorax, no foreign body [facility] [address] [place] [address] XRay Report Signed Patient: DESTINI POE MR#: [id number] 55 : 1965 Acct:[id number] Age/Sex: 55 / M ADM Date: 07/24/20 Loc: ED Attending Dr: Ordering Physician: ROLANDO CHAVEZ MD Date of Service: 07/24/20 Procedure(s): XR chest 1V ap Accession Number(s): [id number] cc: ROLANDO CHAVEZ MD Fluoro Time In Minutes: CHEST 1 VIEW 07/24/2020 3:42 PM INDICATION / CLINICAL INFORMATION: Fever. COMPARISON: 11/30/2019. FINDINGS: SUPPORT DEVICES: None. HEART / MEDIASTINUM: No significant abnormality. LUNGS / PLEURA: No significant pulmonary or pleural abnormality. No pneumothorax. ADDITIONAL FINDINGS: There is slight right hilar prominence which may represent mild vascular congestion. IMPRESSION: 1. No acute cardiopulmonary abnormality. 2. Slight prominence of the right hilum which could represent mild vascular congestion. Signer Name: Clive Raygoza MD Signed: 07/24/2020 4:55 PM Workstation Name: [id number] Transcribed By: SS Dictated By: CLIVE RAYGOZA Electronically Authenticated By: CLIVE RAYGOZA Signed Date/Time: 07/24/201654 DD/ 52 TD/TT: - Differential Diagnosis Sinusitis, bronchitis, UTI, bacteremia, enteritis, Critical care attestation.: If time is entered above; I have spent that time in minutes in the direct care of this critically ill patient, excluding procedure time. ED Disposition Clinical Impression: Fever, Body aches, UTI (urinary tract infection) Disposition: DC-01 TO HOME OR SELFCARE Is pt being admited?: No Does the pt Need Aspirin: No Condition: Stable Instructions: Fever in Adults (ED) Additional Instructions: Return to the emergency department should you develop worsening symptoms, inability to tolerate food or liquids, high fever or any other concerns Prescriptions: Cyclobenzaprine [Flexeril] 10 mg PO TID PRN #10 tablet PRN Reason: Muscle Spasm levoFLOXacin [Levaquin TAB] 500 mg PO QDAY #10 tablet Ibuprofen [Motrin 800 MG tab] 800 mg PO Q8HR PRN #20 tablet PRN Reason: Pain, Moderate (4-6) Referrals: DAPHNIE SUE MD [Staff Physician] - 3-5 Days Time of Disposition: 19:01
[2020-07-24 16:53] LABS: Basophils # (Auto) 0.1 K/mm3 (0.0-0.1); Basophils % (Auto) 0.5 % (0.0-1.8); Hematocrit 38.2 % (35.5-45.6); Hemoglobin 13.2 gm/dl (11.8-15.2); Lymphocytes # (Auto) 1.3 K/mm3 (1.2-5.4); Lymphocytes % (Auto) 10.8 % (13.4-35.0); Mean Corpuscular HGB Conc 35 % (32-34); Mean Corpuscular Volume 94 fl (84-94); Monocytes # (Auto) 1.1 K/mm3 (0.0-0.8); Platelet Count 220 K/mm3 (140-440); Red Blood Count 4.07 M/mm3 (3.65-5.03); Red Cell Distribution Width 13.4 % (13.2-15.2)
[2020-07-24 16:54] LABS: Alanine Aminotransferase 13 units/L (7-56); Albumin 3.6 g/dL (3.9-5); BUN/Creatinine Ratio 8; Blood Urea Nitrogen 7 mg/dL (9-20); Calcium 9.2 mg/dL (8.4-10.2); Hemolysis Index 0
--- NOTE | 2020-07-24 16:59 | XRay Report ---
CHEST 1 VIEW 07/24/2020 3:42 PM INDICATION / CLINICAL INFORMATION: Fever. COMPARISON: 11/30/2019. FINDINGS: SUPPORT DEVICES: None. HEART / MEDIASTINUM: No significant abnormality. LUNGS / PLEURA: No significant pulmonary or pleural abnormality. No pneumothorax. ADDITIONAL FINDINGS: There is slight right hilar prominence which may represent mild vascular congest ion. IMPRESSION: 1. No acute cardiopulmonary abnormality. 2. Slight prominence of the right hilum which could represent mild vascular congestion. Signer Name: Deven Raygoza MD Signed: 07/24/2020 4:55 PM Workstation Name: [id number]
[2020-07-24] MEDS ORDERED: LIDOCAINE-MPF (1%) 10 MG/1 ML VIAL 5 ML INFILTRATI ONE (17:05)
[2020-07-24 17:13] VITALS: BP 120/71
[2020-07-24 18:21] LABS: Bilirubin,Urine NEG (Negative); Blood,Urine MOD (Negative); Color,Urine Yellow (Yellow); Mucus,Urine 3+ /HPF; Urobilinogen,Urine < 2.0 mg/dL (<2.0)
[2020-07-24] MEDS ORDERED: POTASSIUM CHLORIDE ER 20 MEQ TAB PO ONE (18:57)
== END 2020-07-24 19:31 | disposition home or self-care (01) ==
LOC: ED 14:47
DX: N39.0 Urinary tract infection, site not specified (principal); M79.18 Myalgia, other site; I11.0 Hypertensive heart disease with heart failure; I50.9 Heart failure, unspecified; E11.9 Type 2 diabetes mellitus without complications; M13.88 Other specified arthritis, other site; G43.909 Migraine, unspecified, not intractable, without status migrainosus; J45.909 Unspecified asthma, uncomplicated; I25.2 Old myocardial infarction; Z87.891 Personal history of nicotine dependence; Z86.73 Personal history of transient ischemic attack (TIA), and cerebral infarction without residual deficits; Z79.899 Other long term (current) drug therapy; Z88.6 Allergy status to analgesic agent
CPT/HCPCS: 36415; 71045; 80053; 81001; 82140; 83690; 85025; 87040; 87086; 96372; 99284; J0696

== ENCOUNTER 2020-08-06 18:07 | Emergency (ER) | payer MEDICAID ==
[2020-08-06 18:15] VITALS: BP 127/81
[2020-08-06] MEDS ORDERED: oxyCODONE /ACETAMINOPHEN 5-325MG TAB PO ONE (19:20)
[2020-08-06 19:32] LABS: Hematocrit 36.4 % (35.5-45.6); Hemoglobin 12.7 gm/dl (11.8-15.2); Mean Corpuscular HGB Conc 35 % (32-34); Mean Corpuscular Volume 93 fl (84-94); Platelet Count 427 K/mm3 (140-440); Red Blood Count 3.93 M/mm3 (3.65-5.03); Red Cell Distribution Width 14.4 % (13.2-15.2)
--- NOTE | 2020-08-06 19:35 | Emergency Department Report ---
ED Extremity Problem HPI - General Chief complaint: Extremity Injury, Lower Stated complaint: RT FOOT PAIN Time Seen by Provider: 08/06/20 19:14 Source: patient Mode of arrival: Ambulatory Limitations: Physical Limitation - History of Present Illness Initial comments: Is a pleasant 55-year-old male with a past medical history of diabetes, asthma, congestive heart failure, CVA with left-sided deficits, CAD and hypertension who presents the emergency department with chief complaint of swelling to his right second toe with some pain for the past 3 days. He denies any injuries. He denies any fever, chills, night sweats, headache, dizziness, blurry vision, nausea,, diarrhea, chest pain, shortness of breath. He reports he is noticed that the swelling is started in the tip of the toe on the distal tip and started to spread to the dorsal aspect of the foot. He reports the pain is a 10 out of 10 aggravated with any movement and there are no alleviating factors. - Related Data Previous Rx's Medication Instructions Recorded Last Taken Type ALBUTEROL NEB's [Proventil 0.083% 2.5 mg IH TID PRN #30 neb 12/03/19 05/02/20 Rx NEBS] ALPRAZolam [Xanax TAB] 0.25 mg PO BID PRN #14 tab 12/03/19 Unknown Rx Albuterol Mdi (or & Nicu Only) 1 puff IH Q4H PRN #8.5 gram 12/03/19 05/04/20 Rx [ProAir HFA Inhaler] Aspirin [Aspirin BABY CHEW TAB] 81 mg PO QDAY #30 tab.chew 12/03/19 05/03/20 Rx AtorvaSTATin [Lipitor] 40 mg PO QHS #30 tablet 12/03/19 05/01/20 Rx Folic Acid [Folvite] 1 mg PO QDAY #30 tablet 12/03/19 05/03/20 Rx Thiamine [Vitamin B-1] 100 mg PO QDAY #30 tablet 12/03/19 05/03/20 Rx amLODIPine 10 mg PO DAILY 2 Days #30 tab 12/03/19 05/03/20 Rx metFORMIN [Glucophage] 500 mg PO BID #60 tab 12/03/19 05/03/20 Rx ALBUTEROL NEB's [Proventil 0.083% 2.5 mg IH Q4HRT PRN nebu 05/06/20 Unknown Rx NEBS] Famotidine [Pepcid] 20 mg PO BID tablet 05/06/20 Unknown Rx levETIRAcetam [Keppra TAB] 500 mg PO BID #60 tablet 05/06/20 Unknown Rx Cyclobenzaprine [Flexeril] 10 mg PO TID PRN #10 tablet 07/24/20 Unknown Rx Ibuprofen [Motrin 800 MG tab] 800 mg PO Q8HR PRN #20 tablet 07/24/20 Unknown Rx levoFLOXacin [Levaquin TAB] 500 mg PO QDAY #10 tablet 07/24/20 Unknown Rx Acetaminophen with Codeine 1 tab PO Q6HR #12 tab 08/06/20 Unknown Rx [Acetaminophen-Codeine #4 TAB] Clindamycin [Clindamycin CAP] 300 mg PO Q8H #30 cap 08/06/20 Unknown Rx Allergies Allergy/AdvReac Type Severity Reaction Status Date / Time hydromorphone [From Dilaudid] Allergy Itching Verified 08/06/20 18:09 morphine Allergy Unknown Verified 08/06/20 18:09 ED Review of Systems ROS: Stated complaint: RT FOOT PAIN Other details as noted in HPI Comment: All other systems reviewed and negative Constitutional: denies: chills, fever Eyes: denies: eye pain, eye discharge, vision change ENT: denies: ear pain, throat pain Respiratory: denies: cough, shortness of breath, wheezing Cardiovascular: denies: chest pain, palpitations Endocrine: no symptoms reported Gastrointestinal: denies: abdominal pain, nausea, diarrhea Genitourinary: denies: urgency, dysuria Musculoskeletal: as per HPI. denies: back pain, joint swelling, arthralgia Skin: as per HPI. denies: rash, lesions Neurological: denies: headache, weakness, paresthesias Psychiatric: denies: anxiety, depression Hematological/Lymphatic: denies: easy bleeding, easy bruising ED Past Medical Hx - Past Medical History Hx Hypertension: Yes Hx CVA: Yes (left side weakness) Hx Heart Attack/AMI: Yes Hx Congestive Heart Failure: Yes Hx Diabetes: Yes Hx Arthritis: Yes Hx Headaches / Migraines: Yes Hx Seizures: Yes Hx Asthma: Yes Hx Tuberculosis: No Additional medical history: TIA /cva - Surgical History Additional Surgical History: bilateral arm surgery - Social History Smoking Status: Current Some Day Smoker Substance Use Type: None - Medications Home Medications: Home Medications Medication Instructions Recorded Confirmed Last Taken Type ALBUTEROL NEB's [Proventil 0.083% 2.5 mg IH TID PRN #30 neb 12/03/19 05/04/20 05/02/20 Rx NEBS] ALPRAZolam [Xanax TAB] 0.25 mg PO BID PRN #14 tab 12/03/19 05/04/20 Unknown Rx Albuterol Mdi (or & Nicu Only) 1 puff IH Q4H PRN #8.5 gram 12/03/19 05/04/20 05/04/20 Rx [ProAir HFA Inhaler] Aspirin [Aspirin BABY CHEW TAB] 81 mg PO QDAY #30 tab.chew 12/03/19 05/04/20 Rx AtorvaSTATin [Lipitor] 40 mg PO QHS #30 tablet 12/03/19 05/04/20 05/01/20 Rx Folic Acid [Folvite] 1 mg PO QDAY #30 tablet 12/03/19 05/04/20 05/03/20 Rx Thiamine [Vitamin B-1] 100 mg PO QDAY #30 tablet 12/03/19 05/04/20 05/03/20 Rx amLODIPine 10 mg PO DAILY 2 Days #30 tab 12/03/19 05/04/20 05/03/20 Rx metFORMIN [Glucophage] 500 mg PO BID #60 tab 12/03/19 05/04/20 05/03/20 Rx ALBUTEROL NEB's [Proventil 0.083% 2.5 mg IH Q4HRT PRN nebu 05/06/20 Unknown Rx NEBS] Famotidine [Pepcid] 20 mg PO BID tablet 05/06/20 Unknown Rx levETIRAcetam [Keppra TAB] 500 mg PO BID #60 tablet 05/06/20 Unknown Rx Cyclobenzaprine [Flexeril] 10 mg PO TID PRN #10 tablet 07/24/20 Unknown Rx Ibuprofen [Motrin 800 MG tab] 800 mg PO Q8HR PRN #20 tablet 07/24/20 Unknown Rx levoFLOXacin [Levaquin TAB] 500 mg PO QDAY #10 tablet 07/24/20 Unknown Rx Acetaminophen with Codeine 1 tab PO Q6HR #12 tab 08/06/20 Unknown Rx [Acetaminophen-Codeine #4 TAB] Clindamycin [Clindamycin CAP] 300 mg PO Q8H #30 cap 08/06/20 Unknown Rx ED Physical Exam - General Limitations: Physical Limitation General appearance: alert, in no apparent distress - Head Head exam: Present: atraumatic, normocephalic - Eye Eye exam: Present: normal appearance, PERRL, EOMI Pupils: Present: normal accommodation - ENT ENT exam: Present: normal exam, normal orophraynx, mucous membranes moist - Neck Neck exam: Present: normal inspection, full ROM. Absent: tenderness, meningismus - Respiratory Respiratory exam: Present: normal lung sounds bilaterally. Absent: respiratory distress, wheezes, rales, rhonchi, stridor - Cardiovascular Cardiovascular Exam: Present: regular rate, normal rhythm, normal heart sounds. Absent: systolic murmur, diastolic murmur, rubs, gallop - GI/Abdominal GI/Abdominal exam: Present: soft, normal bowel sounds. Absent: distended, tenderness, guarding, rebound, rigid - Rectal Rectal exam: Present: deferred - Extremities Exam Extremities exam: Present: normal inspection, full ROM, tenderness (There is tenderness to the right second toe with circumferential swelling and erythema. There is a possible pustule to the tip of the toe. There is no obvious swelling to the remainder of the foot. There are normal DP and PT pulses. There is full active range of motion with out pain.), calf tenderness (No posterior calf tenderness, negative Homans sign bilaterally) - Back Exam Back exam: Present: normal inspection - Neurological Exam Neurological exam: Present: alert, oriented X3 - Psychiatric Psychiatric exam: Present: normal affect, normal mood - Skin Skin exam: Present: warm, dry, intact, normal color. Absent: rash ED Course Vital Signs 08/06/20 18:11 Temperature 97.6 F Pulse Rate 75 Respiratory 18 Rate Blood Pressure 127/81 O2 Sat by Pulse 100 Oximetry ED Medical Decision Making - Lab Data Result diagrams: 08/06/20 19:22 08/06/20 19:22 Lab Results 08/06/20 08/06/20 Range/Units 19:22 19:22 WBC 10.6 (4.5-11.0) K/mm3 RBC 3.93 (3.65-5.03) M/mm3 Hgb 12.7 (11.8-15.2) gm/dl Hct 36.4 (35.5-45.6) % MCV 93 (84-94) fl MCH 32 (28-32) pg MCHC 35 H (32-34) % RDW 14.4 (13.2-15.2) % Plt Count 427 (140-440) K/mm3 Add Manual Diff Complete Total Counted 100 Seg Neuts % (Manual) 61.0 (40.0-70.0) % Band Neutrophils % 0 % Lymphocytes % (Manual) 28.0 (13.4-35.0) % Reactive Lymphs % (Man) 0 % Monocytes % (Manual) 8.0 H (0.0-7.3) % Eosinophils % (Manual) 2.0 (0.0-4.3) % Basophils % (Manual) 1.0 (0.0-1.8) % Metamyelocytes % 0 % Myelocytes % 0 % Promyelocytes % 0 % Blast Cells % 0 % Nucleated RBC % Not Reportable Seg Neutrophils # Man 6.5 (1.8-7.7) K/mm3 Band Neutrophils # 0.0 K/mm3 Lymphocytes # (Manual) 3.0 (1.2-5.4) K/mm3 Abs React Lymphs (Man) 0.0 K/mm3 Monocytes # (Manual) 0.8 (0.0-0.8) K/mm3 Eosinophils # (Manual) 0.2 (0.0-0.4) K/mm3 Basophils # (Manual) 0.1 (0.0-0.1) K/mm3 Metamyelocytes # 0.0 K/mm3 Myelocytes # 0.0 K/mm3 Promyelocytes # 0.0 K/mm3 Blast Cells # 0.0 K/mm3 WBC Morphology Not Reportable Hypersegmented Neuts Not Reportable Hyposegmented Neuts Not Reportable Hypogranular Neuts Not Reportable Smudge Cells Not Reportable Toxic Granulation Not Reportable Toxic Vacuolation Not Reportable Dohle Bodies Not Reportable Pelger-Huet Anomaly Not Reportable Carmen Rods Not Reportable Platelet Estimate Not Reportable Clumped Platelets Not Reportable Plt Clumps, EDTA Not Reportable Large Platelets Not Reportable Giant Platelets Few Platelet Satelliting Not Reportable Plt Morphology Comment Not Reportable RBC Morphology Normal Dimorphic RBCs Not Reportable Polychromasia Not Reportable Hypochromasia Not Reportable Poikilocytosis Not Reportable Anisocytosis Not Reportable Microcytosis Not Reportable Macrocytosis Not Reportable Spherocytes Not Reportable Pappenheimer Bodies Not Reportable Sickle Cells Not Reportable Target Cells Not Reportable Tear Drop Cells Not Reportable Ovalocytes Not Reportable Helmet Cells Not Reportable [place] Bodies Not Reportable [place] Rings Not Reportable [place] Cells Not Reportable Bite Cells Not Reportable Crenated Cell Not Reportable Elliptocytes Not Reportable Acanthocytes (Spur) Not Reportable Rouleaux Not Reportable Hemoglobin C Crystals Not Reportable Schistocytes Not Reportable Malaria parasites Not Reportable [place] Bodies Not Reportable Hem Pathologist Commnt No Sodium 136 L (137-145) mmol/L Potassium 3.6 (3.6-5.0) mmol/L Chloride 97.9 L (98-107) mmol/L Carbon Dioxide 28 (22-30) mmol/L Anion Gap 14 mmol/L BUN 8 L (9-20) mg/dL Creatinine 0.6 L (0.8-1.3) mg/dL Estimated GFR > 60 ml/min BUN/Creatinine Ratio 13 % Glucose 205 H (75-100) mg/dL Calcium 8.7 (8.4-10.2) mg/dL Total Bilirubin < 0.20 (0.1-1.2) mg/dL AST 13 (5-40) units/L ALT 17 (7-56) units/L Alkaline Phosphatase 70 (35-129) units/L C-Reactive Protein 2.40 H (0.00-1.30) mg/dL Total Protein 6.7 (6.3-8.2) g/dL Albumin 3.4 L (3.9-5) g/dL Albumin/Globulin Ratio 1.0 % - Radiology Data Radiology results: report reviewed, image reviewed XRay Report Signed Patient: DESTINI POE MR#: [id number] 55 : 1965 Acct:[id number] Age/Sex: 55 / M ADM Date: 08/06/20 Loc: ED Attending Dr: Ordering Physician: ISHA YANCEY Date of Service: 08/06/20 Procedure(s): XR foot 3+V RT Accession Number(s): [id number] cc: ISHA YANCEY Fluoro Time In Minutes: RIGHT FOOT 3 VIEW(S) INDICATION / CLINICAL INFORMATION: pain, swelling, erythema to the 2nd toe COMPARISON: None available. FINDINGS: BONES / JOINT(S): No acute fracture or subluxation. No significant arthritis. SOFT TISSUES: Mild swelling at the distal second toe. No subcutaneous gas or foreign object identified. ADDITIONAL FINDINGS: None. Signer Name: Dominic Hinojosa MD Signed: 08/06/2020 8:07 PM Workstation Name: [id number] Transcribed By: Dictated By: DOMINIC HINOJOSA III Electronically Authenticated By: DOMINIC HINOJOSA III Signed Date/Time: 08/06/202006 - Medical Decision Making Patient presented with a erythematous swollen toe. There is no open wounds. X- ray showed no signs of osteomyelitis. CBC was relatively normal with no elevat ion of the white blood cell count. CRP was slightly elevated. The patient was given oral pain medication and felt much better. I will discharge him with oral antibiotics, pain medication and have him follow-up with outpatient podiatry. Patient is instructed to return to the emergency department any change or worsening symptoms. He verbalized understand the diagnosis, treatment and follow-up instructions and all his questions were answered. - Differential Diagnosis Cellulitis, osteomyelitis, diabetic ulcer, abrasion Critical care attestation.: If time is entered above; I have spent that time in minutes in the direct care of this critically ill patient, excluding procedure time. ED Disposition Clinical Impression: Toe swelling, Cellulitis of toe of right foot Disposition: DC-01 TO HOME OR SELFCARE Is pt being admited?: No Condition: Stable Instructions: Cellulitis (ED) Prescriptions: Acetaminophen with Codeine [Acetaminophen-Codeine #4 TAB] 1 tab PO Q6HR #12 tab Clindamycin [Clindamycin CAP] 300 mg PO Q8H #30 cap Referrals: PRIMARY CARE, [Primary Care Provider] - 3-5 Days HUANG FREIRE DPM [Staff Physician] - 3-5 Days Time of Disposition: 20:38
[2020-08-06 19:55] LABS: Alanine Aminotransferase 17 units/L (7-56); Albumin 3.4 g/dL (3.9-5); Blood Urea Nitrogen 8 mg/dL (9-20); Calcium 8.7 mg/dL (8.4-10.2); Hemolysis Index 12
[2020-08-06 19:56] LABS: BUN/Creatinine Ratio 13
--- NOTE | 2020-08-06 20:12 | XRay Report ---
RIGHT FOOT 3 VIEW(S) INDICATION / CLINICAL INFORMATION: pain, swelling, erythema to the 2nd toe COMPARISON: None available. FINDINGS: BONES / JOINT(S): No acute fracture or subluxation. No significant arthritis. SOFT TISSUES: Mild swelling at the distal second toe. No subcutaneous gas or foreign object identifie d. ADDITIONAL FINDINGS: None. Signer Name: Talha Hinojosa MD Signed: 08/06/2020 8:07 PM Workstation Name: [id number]
[2020-08-06 20:18] LABS: Total Cells Counted 100
[2020-08-06 20:19] LABS: Giant Platelets Few; RBC Morphology Normal
== END 2020-08-06 20:53 | disposition home or self-care (01) ==
LOC: ED 18:07
DX: L03.031 Cellulitis of right toe (principal); I11.0 Hypertensive heart disease with heart failure; I50.9 Heart failure, unspecified; I25.2 Old myocardial infarction; E11.9 Type 2 diabetes mellitus without complications; M13.88 Other specified arthritis, other site; G43.909 Migraine, unspecified, not intractable, without status migrainosus; J45.909 Unspecified asthma, uncomplicated; F17.200 Nicotine dependence, unspecified, uncomplicated; Z79.899 Other long term (current) drug therapy; Z88.6 Allergy status to analgesic agent; Z86.73 Personal history of transient ischemic attack (TIA), and cerebral infarction without residual deficits
CPT/HCPCS: 36415; 80053; 85007; 85025; 86140; 99283